=== PATIENT | male | born 1960 | race Caucasian/White ===

== ENCOUNTER 2024-01-10 14:14 | Outpatient (OUT) | payer BC, SELFPAY ==
--- NOTE | 2024-01-10 14:26 | ECG_ITS ---
[facility] Test Date: 2024-01-10 Pat Name: RIKKI FERRER Department: Room: - Gender: Male [employer]: : 1960 Requested By: SURY DRAKE Order Number: [id number] Reading MD: JESSICA BONNER Measurements Intervals Omega Rate: 72 P: 39 WV: 187 QRS: -29 QRSD: 97 T: 30 QT: 362 QTc: 397 Interpretive Statements SINUS RHYTHM BORDERLINE LEFT AXIS DEVIATION [QRS AXIS < -20] No previous ECG available for comparison Electronically Signed On 01-10-2024 22:29:07 EDT by JESSICA BONNER
--- NOTE | 2024-01-10 14:56 | P.GSHP_ITS ---
History of Present Illness History of Present Illness Chief complaint: left Achilles tendon rupture Narrative: Patient presents for preadmission testing. Please see HPI from Dr. Henriquez dated January 06, 2024. Review of Systems ROS0 Narrative REVIEW OF SYSTEMS: Negative except as stated in HPI, ten or more systems reviewed. Constitutional: No fever, chills, weakness ENT: No sore throat or epistaxis Cardiovascular: No edema, chest pain, palpitations, or activity intolerance Respiratory: No shortness of breath, cough, or wheezing Gastrointestinal: No abdominal pain, constipation, diarrhea, or vomiting Genitourinary: No dysuria or hematuria Neurological: No numbness, tingling, weakness, or headache Psychiatric: No mood changes PFSH PFS Medical History (Updated 01/10/24 @ 14:42 by Cherie Nunez NP) Shoulder pain ?M25.519 - Pain in unspecified shoulder (ICD-10) Arthritis ?M19.90 - Unspecified osteoarthritis, unspecified site (ICD-10) Sleep apnea ?G47.30 - Sleep apnea, unspecified (ICD-10) Hypothyroid ?E03.9 - Hypothyroidism, unspecified (ICD-10) High cholesterol ?E78.00 - Pure hypercholesterolemia, unspecified (ICD-10) Hypertension ?I10 - Essential (primary) hypertension (ICD-10) Achilles tendon tear ?S86.019A - Strain of unspecified Achilles tendon, initial encounter (ICD-10) Surgical History (Updated 01/10/24 @ 14:42 by Cherie Nunez NP) History of colonoscopy ?Z98.890 - Other specified postprocedural states (ICD-10) History of tonsillectomy ?Z90.89 - Acquired absence of other organs (ICD-10) History of wisdom tooth extraction ?K08.409 - Partial loss of teeth, unspecified cause, unspecified class (ICD- 10) H/O hand surgery ?Z98.890 - Other specified postprocedural states (ICD-10) History of hernia repair ?Z98.890 - Other specified postprocedural states (ICD-10) ?Z87.19 - Personal history of other diseases of the digestive system (ICD-10) S/P total hip arthroplasty ?Z96.649 - Presence of unspecified artificial hip joint (ICD-10) Family History (Updated 08/06/24 @ 14:42 by Cherie Nunez NP) Other Cancer Social History (Updated 01/10/24 @ 14:38 by Cherie Nunez NP) Within the past year, how often did you have a drink containing alcohol: 2-3 times a week Smoking status: Never smoker Non-prescribed substance use: denies use Previous occupational history: HVAC Highest level of school completed/degree received: Associate degree: occupational, technical, vocational program Meds Home Medications and Allergies Home Medications ?Medication ?Instructions ?Recorded ?Confirmed ?Type atorvastatin 20 mg tablet 20 mg PO DAILY 01/10/24 01/10/24 History hydrochlorothiazide 25 mg tablet 25 mg PO DAILY 01/10/24 01/10/24 History levothyroxine 75 mcg tablet 75 mcg PO DAILY 01/10/24 01/10/24 History lisinopril 10 mg tablet 10 mg PO DAILY 01/10/24 01/10/24 History Allergies Allergy/AdvReac Type Severity Reaction Status Date / Time No Known Drug Allergies Allergy Verified 01/10/24 14:31 Exam Narrative Exam Narrative: Constitutional: Awake, alert, comfortable, well-appearing, nontoxic, interactive, vital signs as charted Head: Normocephalic, atraumatic Neck: Supple, normal appearance, normal range of motion, no meningeal signs, no lymphadenopathy Respiratory: No respiratory distress, breath sounds clear Cardiovascular: Regular rate and rhythm, strong and regular heart tones Musculoskeletal: Cam walking boot in place left lower extremity Skin: No rashes or induration, no lesions, only visible skin inspected Neuro: No neurological deficits, normal sensation Psychiatric: Oriented ?3, normal affect Assessment and Plan Assessment and Plan (1) Achilles tendon tear: Plan Repair of Achilles rupture left leg, possible tendon transfer scheduled with Dr. Henriquez January 13, 2024.
[2024-01-10 15:17] LABS: Anion Gap 9.3; BUN Creatinine Ratio 23.9; Calcium 9.4 mg/dL (8.5-10.1); Carbon Dioxide 29.5 mmol/L (21.0-32.0); Chloride 99 mmol/L (98-107); Estimated GFR (African America >60 (>=60); Estimated GFR (Non-African Ame >60 (>=60); Glucose 100 mg/dL (74-106); Potassium 3.8 mmol/L (3.5-5.1); Sodium 134 mmol/L (136-145)
== END 2024-01-10 14:15 | disposition home or self-care (01) ==
LOC: PST 14:19
PROVIDERS: PCP Family Medicine; Visit Provider Podiatrist Foot & Ankle Surgery
DX: Z01.810 Encounter for preprocedural cardiovascular examination (principal); Z01.812 Encounter for preprocedural laboratory examination; S86.012A Strain of left Achilles tendon, initial encounter; I10 Essential (primary) hypertension
CPT/HCPCS: 36415; 80048; 93005; G0463

== ENCOUNTER 2024-01-13 06:14 | Day surgery (SDC) | payer BC, SELFPAY ==
[2024-01-10 14:51] VITALS: BP 138/91; PULSE 77; TEMP 36.3; O2SAT 97; BMI 33.4
[2024-01-13] VITALS (8 sets, daily range): BP systolic 128–146; BP diastolic 81–96; PULSE 62–76; TEMP 36.3–36.4; O2SAT 92–98; BMI 33.1
--- OUTSIDE RECORDS SUMMARY | 2024-01-13 06:18 | XMS_ITS | CCD ---
Author Organization [facility] Providers Care Data Keyer Name Role Phone MAST, RUBEN Unavailable Unavailable MAST, RUBEN Unavailable Unavailable MAST, RUBEN Unavailable Unavailable MAST, RUBEN Unavailable Unavailable MAST, RUBEN Unavailable Unavailable MAST, RUBEN Unavailable Unavailable MAST, RUBEN Unavailable Unavailable MAST, RUBEN Unavailable Unavailable MAST, RUBEN Unavailable Unavailable Mario Regan Admit Provider Mario Regan Attending Provider Mast, Ruben Primary Care Provider Mast, Ruben Primary Care Provider [phone] Miguel Merlos Attending Provider [phone] Eliana Barrera Attending Provider Mast, Ruben Primary Care Provider [phone] Miguel Merlos Attending Provider Mario Regan Attending Provider Eliana Barrera Attending Provider [phone] Mast, Ruben Primary Care Provider [phone] Mario Regan Attending Provider [phone] Eliana Barrera Attending Provider Mast, Ruben Unavailable Apollo Rao Unavailable Homar Dooley Unavailable Liban Maxwell Unavailable Mast, DO Ruben Primary Care Provider Mast, DO Ruben Attending Provider [phone] Mast, DO Ruben Primary Care Provider MD Homar Dooley Attending Provider Mast, DO Ruben Attending Provider Eliana Mir Unavailable Mast, DO Ruben Primary Care Provider Mast, DO Ruben Attending Provider Mast, DO Ruben Primary Care Provider [phone] Mast, DO Ruben Attending Provider Hidalgo, SALES NEGOTIATOR Autumn Attending Provider [phone] Hidalgo, Autumn Unavailable Mast, DO Ruben Primary Care Provider Hidalgo, SALES NEGOTIATOR Autumn Attending Provider [phone] MD Homar Dooley Attending Provider Mast, DO Ruben Primary Care Provider Mast, DO Ruben Primary Care Provider [phone] GOYO Marroquin Attending Provider [phone] GOYO Marroquin Other Provider [phone] CASSIE MARROQUIN Attending Unavailable CASSIE MARROQUIN Referring Unavailable DO Alon Castellanos Emergency Provider [phone] Mast, Ruben Primary Care Unavailable Mast, Ruben Attending Unavailable Mast, Ruben Admitting Unavailable Cassie Marroquin Admitting Unavailable Cassie Marroquin Consulting Unavailable Cassie Marroquin Attending Unavailable Mast, Ruben Primary Care Unavailable Homar Dooley Admitting Unavailable Homar Dooley Attending Unavailable Mast, Ruben Primary Care Unavailable Mast, Ruben Primary Care Unavailable Mast, Ruben Attending Unavailable Mast, Ruben Admitting Unavailable Hidalgo, Autumn Admitting Unavailable Hidalgo, Autumn Attending Unavailable Mast, Ruben Primary Care Unavailable Alon Castellanos Attending Unavailable Mast, Ruben Primary Care Unavailable Alon Castellanos Admitting Unavailable Unavailable Unavailable Unavailable Medications Current Medications Medication Drug Class(es) Dates Sig (Normalized) Sig (Original) 0.25 MG, 0.5 MG Dose 3 ML semaglutide 0.68 MG/ML Pen Injector [Ozempic] (1 source) Start: 01-10-2023 Ozempic (0.25 or 0.5 MG/DOSE) 2 MG/3ML 0.25 mg Subcutaneous once a week Jan, Active 0.5 ML semaglutide 0.5 MG/ML Auto-Injector [Wegovy] (2 sources) Start: 01-12-2023 inject 0.5 mL by subcutaneous injection every week Wegovy 0.25 MG/0.5ML 0.5 mL Subcutaneous once a week for 30 days Jan, Active acetaminophen 325 mg oral tablet (20 sources) Start: 10-03-2023 take 1 tablet by mouth every four hours as needed Acetaminophen (Tylenol) 325 mg tablet Active 1 TAB PO Every 4 hours October 03, 2023 12:00am FreeTextSi tablet as needed Orally every 4 hrs; Note: Source Status: Takingprn; Provider: Rocky Leyva ( ) Start: 07-22-2020 End: 09-07-2021 take 650 mg by mouth once daily Acetaminophen Discontinued 650 MG PO Daily July 22, 2020 1:00am September 07, 2021 7:32am Start: 10-15-2019 End: 02-27-2020 take 1 tablet by mouth every six hours Acetaminophen (Tylenol) 325 mg Tablet Discontinued 325 MG PO Q6H October 15, 2019 12:00am February 27, 2020 8:48am take 1 tablet by abdiel th every four hours Tylenol 325 MG 1 tablet as needed Orally every 4 hrs prn Active acetaminophen 325 mg / HYDROcodone bitartrate 5 mg oral tablet (2 sources) Opioid Agonist Start: 01-02-2024 take 1 tablet by mouth every six hours Hydrocodone-Acetaminophen Active 1 TAB PO Q6H 10 January 02, 2024 amoxicillin 500 mg oral capsule (3 sources) Penicillin-class Antibacterial Start: 12-25-2023 take 500 mg by mouth twice daily Amoxicillin Active 500 MG PO Twice daily 25 03December 25, 2023 12:00am Amoxicillin / Clavulanate (15 sources) Penicillin-class Antibacterial Start: 12-03-2022 take 1 tablet by mouth every twelve hours Augmentin 875-125 MG 1 tablet Orally every 12 hrs for 7 days Nov, Active Start: 10-17-2021 take 1 tablet by mouth every t welve hours atorvastatin (20 sources) HMG-CoA Reductase Inhibitor Start: 12-28-2023 take 1 tablet by mouth once daily Atorvastatin Active 0 .ROUTE .COMPLEX December 28, 2023 11:06am Take 1 tablet by mouth once daily Start: 11-28-2023 End: 12-28-2023 take 1 tablet by mouth once daily Atorvastatin Discontinued 0 .ROUTE .COMPLEX November 28, 2023 6:56am December 28, 2023 11:07am Take 1 tablet by mouth once daily Start: 11-28-2023 take 1 tablet by abdiel th once daily Atorvastatin Active 0 .ROUTE .COMPLEX November 28, 2023 6:56am Take 1 tablet by mouth once daily Start: 09-28-2023 End: 11-28-2023 take 1 tablet by mouth once daily Atorvastatin Discontinued 0 .ROUTE .COMPLEX September 28, 2023 3:11pm November 28, 2023 6:57am Take 1 tablet by mouth once daily Start: 09-28-2023 take 1 tablet by abdiel th once daily Atorvastatin Active 0 .ROUTE .COMPLEX September 28, 2023 3:11pm Take 1 tablet by mouth once daily Start: 08-09-2023 End: 09-28-2023 take 1 tablet by mouth once daily Atorvastatin Discontinued 1 TAB PO Daily August 09, 2023 1:00am September 28, 2023 3:11pm FreeTextSig: Take 1 tablet by mouth once daily; Note: Source Status: Taking; Refills: 10; Provider: Lidia Morgan ( ) Start: 01-05-2022 take 1 tablet by abdiel th every twenty-four hours Atorvastatin Calcium 20 MG 1 tablet Orally Once a day for 30 day(s) Jan, Active diclofenac sodium 0.01 mg/mg topical gel (20 sources) Nonsteroidal Anti-inflammatory Drug Start: 10-03-2023 Diclofenac Sodium Active TOPICAL October 03, 2023 12:00am FreeTextSig: as directed apply 1-2 grams affected area Four times a day; Note: Source Status: Taking; Refills: 2; Qty: 100 Gram; Provider: Soumya Laureano Start: 10-19-2022 Diclofenac Sod ium 1 % as directed apply 1-2 grams affected area Four times a day for 30 days October, Active Start: 06-13-2019 End: 02-27-2020 take 50 mg by mouth twice daily Diclofenac Potassium Discontinued 50 MG PO Twice daily June 13, 2019 1:00am February 27, 2020 8:49am hydroCHLOROthiazide 25 mg oral tablet (20 sources) Thiazide Diuretic Start: 12-28-2023 take 1 tablet by mouth once daily in the morning Hydrochlorothiazide Active 0 .ROUTE .COMPLEX December 28, 2023 11:07am TAKE 1 TABLET BY MOUTH ONCE DAILY IN THE MORNING Start: 08-05-2020 End: 12-28-2023 take 25 mg by mouth once daily Hydrochlorothiazide Discontinued 25 MG PO Daily August 05, 2020 1:00am December 28, 2023 11:07am levothyroxine sodium 0.075 mg oral tablet (20 sources) l-Thyroxine Start: 08-02-2023 End: 08-02-2023 take 1 tablet by mouth once daily in the morning Levothyroxine Active 75 MCG PO Daily August 02, 2023 2:05pm FreeTextSig: TAKE 1 TABLET BY MOUTH ONCE DAILY IN THE MORNING ON AN EMPTY STOMACH; Note: Source Status: Taking; Refills: 2; Qty: 30 Tablet; Provider: Lidia Morgan ( ) Start: 10-15-2022 take 1 tablet by abdiel th once daily in the morning Levothyroxine Sodium 50 MCG 1 tablet in the morning on an empty stomach Orally Once a day for 30 days October, Active take 1 tablet by abdiel th once daily in the morning Levothyroxine Sodium 75 MCG TAKE 1 TABLET BY MOUTH ONCE DAILY IN THE MORNING ON AN EMPTY STOMACH for 30 days Active take 1 tablet by abdiel th once daily in the morning Levothyroxine Sodium 75 MCG TAKE 1 TABLET BY MOUTH ONCE DAILY IN THE MORNING ON AN EMPTY STOMACH for 30 days Active Lisinopril (20 sources) Angiotensin Converting Enzyme Inhibitor Start: 12-28-2023 take 1 tablet by mouth once daily Lisinopril Active 0 .ROUTE .COMPLEX December 28, 2023 11:07am Take 1 tablet by mouth once daily Start: 09-07-2021 End: 12-28-2023 take 10 mg by mouth once daily Lisinopril Discontinued 10 MG PO Daily September 07, 2021 12:00am December 28, 2023 11:07am Loratadine (20 sources) Claritin Active predniSONE 10 mg oral tablet (4 sources) Start: 12-25-2023 Prednisone Active MG PO December 25, 2023 12:00am sildenafil 100 mg oral tablet (20 sources) Phosphodiesterase 5 Inhibitor Start: 05-10-2017 take 1 tablet by mouth once daily Sildenafil (Viagra) 100 mg Tablet Active 100 MG PO Daily October 15, 2019 12:00am wegovy 0.25 mg/0.5ml solution auto-injector (1 source) Start: 01-12-2023 inject 0.5 mL by subcutaneous injection every week Wegovy 0.25 MG/0.5ML 0.5 mL Subcutaneous once a week for 30 days Jan, Active Completed/Discontinued Medications Medication Drug Class(es) Dates Sig (Normalized) Sig (Original) acetaminophen 325 mg / oxyCODONE hydrochloride 5 mg oral tablet (16 sources) Opioid Agonist Start: 03-05-2020 Percocet 5-325 MG 1-2 tablet as needed for pain Orally every 6-8 hrs for 7 days Feb, Not-Taking aspirin 81 mg delayed release oral tablet (17 sources) Platelet Aggregation Inhibitor, Nonsteroidal Anti-inflammatory Drug Start: 08-05-2020 End: 09-07-2021 take 81 mg by mouth twice daily Aspirin Discontinued 81 MG PO Twice daily August 05, 2020 1:00am September 07, 2021 7:32am benzonatate 200 mg oral capsule (15 sources) Non-narcotic Antitussive Start: 09-16-2023 End: 10-03-2023 take 200 mg by mouth three times daily Benzonatate Discontinued 200 MG PO Three times daily 04 04September 16, 2023 12:00am October 03, 2023 3:20pm Start: 12-03-2022 take 1 capsule by [facility] three times daily as needed Tessalon Perles 100 MG 1 capsule as needed Orally Three times a day PRN for 7 days Nov, Active cyclobenzaprine hydrochloride 10 mg oral tablet (20 sources) Muscle Relaxant Start: 06-13-2019 End: 02-27-2020 take 10 mg by mouth three times daily Cyclobenzaprine Discontinued 10 MG PO Three times daily January 25, 2020 12:00am February 27, 2020 8:49am doxycycline monohydrate 100 mg oral capsule (7 sources) Tetracycline-class Drug Start: 09-16-2023 End: 10-03-2023 take 100 mg by mouth twice daily Doxycycline Monohydrate Discontinued 100 MG PO Twice daily 14 7 September 16, 2023 12:00am October 03, 2023 3:23pm gabapentin 300 mg oral capsule (16 sources) Anti-epileptic Agent Start: 01-02-2020 take 1 capsule by mouth every twenty-four hours Gabapentin 300 MG 1 capsule Orally Once a day for 30 day(s) Dec, Not-Taking hydrOXYzine pamoate 50 mg oral capsule (20 sources) Antihistamine Start: 08-05-2020 End: 09-07-2021 take 25 mg by mouth every three hours Hydroxyzine Pamoate Discontinued 25 MG PO Q3H August 05, 2020 1:00am September 07, 2021 7:22am Start: 08-05-2020 End: 09-07-2021 take 50 mg by mouth every three hours Hydroxyzine Pamoate Discontinued 50 MG PO Q3H August 05, 2020 1:00am September 07, 2021 7:32am Start: 03-05-2020 take 1 capsule by mo ut every eight hours as needed for muscle spasms Vistaril 25 MG 1 capsule as needed for muscle spasm Orally every 8 hrs May substitute with capsules or atarax 25 mg if needed Feb, Not-Taking ibuprofen 200 mg oral tablet (20 sources) Nonsteroidal Anti-inflammatory Drug Start: 07-22-2020 End: 09-07-2021 take 400 mg by mouth every six hours Ibuprofen Discontinued 400 MG PO Q6H July 22, 2020 1:00am September 07, 2021 7:32am Start: 02-27-2020 End: 03-12-2020 take 400 mg by mouth every six hours Ibuprofen Discontinued 400 MG PO Q6H February 27, 2020 12:00am March 12, 2020 3:02pm oxyCODONE hydrochloride 5 mg oral tablet (20 sources) Opioid Agonist Start: 08-05-2020 End: 09-07-2021 take 10 mg by mouth every four hours Oxycodone Discontinued 10 MG PO Every 4 hours August 05, 2020 September 07, 2021 7:32am Start: 08-05-2020 End: 09-07-2021 take 5 mg by mouth every four hours Oxycodone Discontinued 5 MG PO Every 4 hours August 05, 2020 September 07, 2021 7:22am rivaroxaban 10 mg oral tablet (20 sources) Factor Xa Inhibitor Start: 03-12-2020 End: 07-22-2020 take 1 tablet by mouth once daily Rivaroxaban (Xarelto) 10 mg Tablet Discontinued 10 MG PO Daily March 12, 2020 12:00am July 22, 2020 10:30am 72 hr scopolamine 0.0139 mg/hr transdermal system (20 sources) Anticholinergic Start: 06-13-2019 End: 09-07-2021 Scopolamine Base Discontinued 1 MG TOPICAL Q72H June 13, 2019 1:00am September 07, 2021 7:32am Start: 06-08-2018 Transderm-Scop 1.5 MG 1 patch to skin as needed Transdermal for 30 day(s) Jun, Not-Taking Transderm-Scop 1 .5 MG 1 patch to skin as needed Transdermal for 30 day(s) PRN Active Transderm-Scop 1 .5 MG 1 patch to skin as needed Transdermal for 30 day(s) Active tiZANidine 4 mg oral capsule (20 sources) Central alpha-2 Adrenergic Agonist Start: 10-15-2019 End: 10-15-2019 take 4 mg by mouth three times daily Tizanidine Discontinued 4 MG PO Three times daily October 15, 2019 12:00am October 15, 2019 12:57pm traMADol hydrochloride 50 mg oral tablet (20 sources) Opioid Agonist Start: 12-21-2019 End: 03-12-2020 take 50 mg by mouth once daily Tramadol Discontinued 50 MG PO Daily December 21, 2019 12:00am March 12, 2020 3:02pm Start: 11-07-2019 take 1 tablet by abdiel th every eight hours as needed for pain traMADol HCl 50 MG 1 tablet as needed for pain Orally every 8 hours for 7 days Feb, Not-Taking triamcinolone acetonide 40 mg/ml injectable suspension (20 sources) Corticosteroid Start: 08-24-2021 Kenalog-40 Dec, 40 mg Start: 08-24-2021 Kenalog -40 mg Aug, 40 mg Problems Active Problems Problem Classification Problem Date Documented Date Episodic/Chronic Disorders of lipid metabolism (20 sources) Hyperlipidemia; Translations: [Hyperlipidemia, unspecified] Onset: 01-05-2022 Resolved: 01-05-2022 Chronic Essential hypertension (20 sources) Essential hypertension; Translations: [Essential (primary) hypertension] Onset: 11-26-2021 Resolved: 11-26-2021 Chronic Osteoarthritis (20 sources) Osteoarthritis of left hip joint; Translations: [Unilateral primary osteoarthritis, left hip] Onset: 08-24-2021 Resolved: 12-08-2021 Chronic Other and unspecified benign neoplasm (20 sources) History of polyp of colon; Translations: [Personal history of colonic polyps] Episodic Other and unspecified benign neoplasm (13 sources) Polyp of colon; Translations: [Polyp of colon] 09-07-2021 Episodic Other connective tissue disease (20 sources) History of total hip arthroplasty; Translations: [Presence of unspecified artificial hip joint] 03-12-2020 Chronic Other connective tissue disease (1 source) Presence of unspecified artificial hip joint; Translations: [History of revision of total replacement of left hip joint] Chronic Other connective tissue disease (20 sources) History of total replacement of right hip joint; Translations: [Presence of right artificial hip joint] Chronic Other connective tissue disease (2 sources) Pain in right hand Episodic Other connective tissue disease (2 sources) Pain in left hand Episodic Other connective tissue disease (2 sources) Achilles tendinitis; Translations: [Achilles tendinitis, unspecified leg] 01-02-2024 Episodic Other ear and sense organ disorders (20 sources) Bilateral tinnitus; Translations: [Tinnitus, bilateral] Episodic Other injuries and conditions due to external causes (20 sources) Splinter in skin; Translations: [Other injury of unspecified body region, initial encounter] 06-12-2020 Episodic Other male genital disorders (20 sources) Impotence of organic origin; Translations: [Male erectile dysfunction, unspecified] Chronic Other nervous system disorders (20 sources) Chronic pain; Translations: [Other chronic pain] Chronic Other non-traumatic joint disorders (3 sources) Pain in right shoulder Onset: 08-24-2021 Resolved: 12-08-2021 Episodic Other non-traumatic joint disorders (3 sources) Pain in left shoulder Onset: 08-24-2021 Resolved: 12-08-2021 Episodic Other nutritional; endocrine; and metabolic disorders (10 sources) Body mass index 30+ - obesity; Translations: [Body mass index (BMI) 33.0-33.9, adult] Chronic Other nutritional; endocrine; and metabolic disorders (10 sources) Obesity; Translations: [Obesity, unspecified] Chronic Other nutritional; endocrine; and metabolic disorders (2 sources) Obesity, unspecified; Translations: [Obesity, unspecified] Onset: 04-14-2023 Chronic Other nutritional; endocrine; and metabolic disorders (1 source) Body mass index (BMI) 33.0-33.9, adult Chronic Other screening for suspected conditions (not mental disorders or infectious disease) (20 sources) Screening status; Translations: [Encounter for screening for malignant neoplasm of colon] Onset: 12-17-2023 Episodic Other upper respiratory disease (20 sources) Allergic rhinitis; Translations: [Allergic rhinitis, unspecified] Chronic Other upper respiratory infections (18 sources) Acute sinusitis, unspecified; Translations: [Acute upper respiratory infection, unspecified] Onset: 10-17-2021 Resolved: 10-17-2021 Episodic Residual codes; unclassified (15 sources) Obstructive sleep apnea syndrome; Translations: [Obstructive sleep apnea (adult) (pediatric)] Chronic Residual codes; unclassified (1 source) Obstructive sleep apnea (adult) (pediatric) Chronic Residual codes; unclassified (1 source) Obstructive sleep apnea (adult)(pediatric); Translations: [Obstructive sleep apnea (adult) (pediatric)] Onset: 06-27-2023 Chronic Residual codes; unclassified (20 sources) Insomnia; Translations: [Insomnia, unspecified] Episodic Residual codes; unclassified (1 source) Insomnia, unspecified Episodic Spondylosis; intervertebral disc disorders; other back problems (20 sources) Solitary sacroiliitis; Translations: [Sacroiliitis, not elsewhere classified] Chronic Spondylosis; intervertebral disc disorders; other back problems (20 sources) Lumbago with sciatica; Translations: [Lumbago with sciatica, right side] Episodic Sprains and strains (4 sources) Rupture of Achilles tendon; Translations: [Strain of unspecified Achilles tendon, initial encounter] Onset: 01-02-2024 01-02-2024 Episodic Thyroid disorders (8 sources) Hypothyroidism; Translations: [Hypothyroidism, unspecified] 10-03-2023 Chronic Unclassified (1 source) Primary osteoarthritis, right shoulder; Translations: [Primary osteoarthritis, right shoulder] Onset: 08-09-2023 Past or Other Problems Problem Classification Problem Date Documented Da te Episodic/Chronic Other and unspecified benign neoplasm (1 source) Personal history of colonic polyps Onset: 08-12-2021 Resolved: 08-12-2021 Episodic Results Test Name Value Interpretation Reference Range Facility MR ankle LT wo conon 024 MR ankle LT wo con [facility] Main [place] [address] [place] [address] MRI Report Signed Patient: Paul Bermudez MR#: [id number] : 1960 Acct:[id number] Age/Sex: 63 / M ADM Date: 01/02/24 Loc: ER Room: Type: [facility] ER Attending Dr: Copies to: Alon Castellanos DO Ordering Provider: Alon Castellanos DO Date of Service: 01/02/24 MR/MR ankle LT wo con: achilles MR ankle LT wo con 01/02/2024 8:47 AM SIGNS AND SYMPTOMS: Twisting injury to left ankle with pain on palpation, possible torn Achilles tendon PROTOCOL: Multiplanar multisequence MR images of the left ankle were obtained without IV contrast. COMPARISON: None FINDINGS: Alignment: Normal. Fluid: Tibiotalar: No joint effusion. Subtalar: No joint effusion. Medial: Medial malleolus: Intact. Tendons: Posterior tibial tendon: Intact. Flexor digitorum longus: Intact. Flexor hallucis longus: Intact. There is fluid along the tendon sheath possibly representing tenosynovitis.. Ligaments: Deltoid ligament complex - superficial: Intact. Deltoid ligament complex - deep: Intact. Spring (plantar calcaneo-navicular) ligament: Intact. Lateral: Lateral malleolus: Intact. Retromalleolar groove: Intact. Tendons: Peroneus longus: Intact. Peroneus brevis: Intact. Peroneal retinaculum: Intact. Ligaments: Anterior inferior tibiofibular (syndesmosis): Intact. Posterior inferior tibiofibular (syndesmosis): Intact. Anterior talofibular ligament: Intact. Calcaneofibular ligament: Intact. Posterior talofibular ligament: Intact. Posterior: Posterior talus: Normal. Intermalleolar ligament: Intact. Achilles tendon: There is a full-thickness tear of the Achilles tendon. The proximal aspect is retracted cranially by 6 cm. Plantar fascia: Intact. Anterior: Tendons: Anterior tibial tendon: Intact. Extensor hallucis longus: Intact. Extensor digitorum longus: Intact. Tibiotalar joint: Intact. Subtalar joint: Intact. Bones (other than subarticular marrow): Normal. Muscles: Normal Tarsal tunnel: Normal. Sinus tarsi: Normal. MR/MR ankle LT wo con IMPRESSION: There is a full-thickness tear of the Achilles tendon. The proximal aspect is retracted cranially by 6 cm. There is fluid along the flexor hallucis longus tendon sheath possibly representing tenosynovitis. Impression dictated by: Jhon Carrington M.D.01/02/2024 12:58 PM Dictation Location: [place] [address] Transcribed By: [facility] 01/02/24 1258 Dictated By: Jhon Carrington II, MD 01/02/24 1245 Signed By: 01/02/24 1258 Normal [facility] No Panel InformationOrdered By: Makenna Lock on 12-25-2023 COVID Antigen (POC) [place] Quick Strep (POC) [facility] US venous duplex [facility] US venous [place] [address] Ultrasound Report Signed Patient: Paul Bermudez MR#: [id number] : 1960 Acct:[id number] Age/Sex: 63 / M ADM Date: 12/17/23 Loc: [place] Room: Type: [facility] Attending Dr: Cassie TOUSSAINTC Ordering Provider: Cassie Marroquin PA-C Date of Service: 12/17/23 US/US venous duplex [facility]: R22.42 Copies to: Cassie Marroquin PA-C LEFT LOWER EXTREMITY VENOUS DUPLEX INDICATION: Left leg edema pain and tenderness. Recent left ankle trauma. Unilateral left lower extremity venous duplex Doppler study was obtained utilizing B-mode, color- flow and spectral Doppler. FINDINGS: The left common femoral, femoral, and popliteal veins showed adequate compressibility, color-flow and augmentation. The left posterior tibial and peroneal veins were compressible, as well as proximal greater saphenous vein. The contralateral right common femoral vein was compressible with color-flow and augmentation. US/US venous duplex LE LT IMPRESSION: NO EVIDENCE OF DEEP VENOUS THROMBOSIS IN THE LEFT LOWER EXTREMITY. NO SUPERFICIAL THROMBOPHLEBITIS WAS NOTED. Impression dictated by: Sunday Brar MD12/18/2023 12:53 PM Dictation Location: [place] [address] Tech: Mirta Betancourt Transcribed By: RC 12/18/23 1253 Dictated By: Sunday Brar MD 12/18/23 1253 Signed By: 12/18/23 1253 Normal [facility] Alanine aminotransferase [En zymatic activity/volume] in Serum or PlasmaOrdered By: Ruben Murillo on 12-17-2023 ALT [Catalytic activity/Vol] 44 U/L 7-52 [facility] Comment on above: Performed By: #### L IPID, CBC, TSH3 wRFLX, CMP wRFX A1C #### [facility] [address] [place] [id number] [place] Albumin [Mass/volume] in Ser um or Plasma by Bromocresol green (BCG) dye binding methoOrdered By: Ruben Murillo on 12-17-2023 Albumin BCG dye [Mass/Vol] 4.7 g/dL 3.5-5.7 [facility] Alkaline phosphatase [Enzyma tic activity/volume] in Serum or PlasmaOrdered By: Ruben Murillo on 12-17-2023 ALP [Catalytic activity/Vol] 48 U/L 34-104 [facility] Comment on above: Performed By: #### L IPID, CBC, TSH3 wRFLX, CMP wRFX A1C #### [facility] [address] [place] [address] [place] Aspartate aminotransferase [ Enzymatic activity/volume] in Serum or PlasmaOrdered By: Ruben Murillo on 12-17-2023 AST [Catalytic activity/Vol] 30 U/L 13-39 [facility] Comment on above: Performed By: #### L IPID, CBC, TSH3 wRFLX, CMP wRFX A1C #### [facility] [facility] [address] [place] [address] [place] Automated basophil %Ordered By: Ruben Murillo on 12-17-2023 Basophils/100 WBC (Bld) 0.9 % . [facility] Comment on above: Performed By: #### L IPID, CBC, TSH3 wRFLX, CMP wRFX A1C #### [facility] [address] [place] [address] Automated basophil countOrde red By: Ruben Mast on 12-17-2023 Basophils (Bld) [#/Vol] 0.1 10*3/uL 0.0-0.2 [facility] Comment on above: Result Comment: PERF ORMED BY: [place] [address] PATHOLOGIST LYMPHEDEMA THERAPIST ELIZABETH RAMIREZ M.D. Performed By: #### L IPID, CBC, TSH3 wRFLX, CMP wRFX A1C #### [address] Automated blood monocyte cou ntOrdered By: Ruben Mast on 12-17-2023 Monocytes (Bld) [#/Vol] 0.8 10*3/uL 0.0-0.8 [facility] Comment on above: Performed By: #### L IPID, CBC, TSH3 wRFLX, CMP wRFX A1C #### [address] Automated eosinophil %Ordere d By: Ruben Mast on 12-17-2023 Eosinophils/100 WBC (Bld) 2.3 % . [facility] Comment on above: Performed By: #### L IPID, CBC, TSH3 wRFLX, CMP wRFX A1C #### [facility] [address] [place] [address] Automated eosinophil countOr dered By: Ruben Mast on 12-17-2023 Eosinophils (Bld) [#/Vol] 0.2 10*3/uL 0.0-0.45 [facility] Comment on above: Performed By: #### L IPID, CBC, TSH3 wRFLX, CMP wRFX A1C #### [facility] [address] [place] [address] Automated monocyte %Ordered By: Ruben Mast on 12-17-2023 Monocytes/100 WBC (Bld) 9.2 % . [facility] Comment on above: Performed By: #### L IPID, CBC, TSH3 wRFLX, CMP wRFX A1C #### [facility] [address] Automated neutrophil %Ordere d By: Ruben Murillo on 12-17-2023 Neutrophils/100 WBC (Bld) 54.2 % . [facility] Comment on above: Performed By: #### L IPID, CBC, TSH3 wRFLX, CMP wRFX A1C #### [facility] [address] Bilirubin.total [Mass/volume ] in Serum or PlasmaOrdered By: Ruben Murillo on 12-17-2023 Bilirubin [Mass/Vol] 0.8 mg/dL 0.3-1.0 [facility] Comment on above: Performed By: #### L IPID, CBC, TSH3 wRFLX, CMP wRFX A1C #### [facility] [address] [place] [address] CMP with reflex to A1Con Albumin [Mass/Vol] 4.7 g/dL Normal 3.5-5.7 [facility] Comment on above: Performed By: #### L IPID, CBC, TSH3 wRFLX, CMP wRFX A1C #### [address] GFR/1.73 sq M.predicted MDRD (S/P/Bld) [Vol rate/Area] mL/min/{1.73_m2} Normal [facility] Comment on above: Performed By: #### L IPID, CBC, TSH3 wRFLX, CMP wRFX A1C #### [facility] [address] [place] [address] Calcium [Mass/volume] in Ser um or PlasmaOrdered By: Ruben Murillo on 12-17-2023 Calcium [Mass/Vol] 9.8 mg/dL 8.6-10.3 [facility] Comment on above: Performed By: #### L IPID, CBC, TSH3 wRFLX, CMP wRFX A1C #### [facility] [address] [place] [address] [place] Carbon dioxide, total [Moles /volume] in Serum or PlasmaOrdered By: Ruben Murillo on 12-17-2023 CO2 [Moles/Vol] 28.4 mmol/L 21.0-31.0 [facility] Comment on above: Performed By: #### L IPID, CBC, TSH3 wRFLX, CMP wRFX A1C #### [facility] [address] [place] [address] [place] Chloride [Moles/volume] in S germain or PlasmaOrdered By: Ruben Murillo on 12-17-2023 Chloride [Moles/Vol] 100 mmol/L 98-107 [facility] Comment on above: Performed By: #### L IPID, CBC, TSH3 wRFLX, CMP wRFX A1C #### [facility] [address] [place] [id number] [place] Cholesterol [Mass/volume] in Serum or PlasmaOrdered By: Ruben Murillo on 12-17-2023 Cholesterol [Mass/Vol] 182 mg/dL 140-200 [facility] Comment on above: Chol less than 200 m g/dl low riskChol 201-239 mg/dl borderline riskChol 240 mg/dl and greater high risk Result Comment: Chol less than 200 mg/dl low risk Chol 201-239 mg/dl borderline risk Chol 240 mg/dl and greater high risk Performed By: #### L IPID, CBC, TSH3 wRFLX, CMP wRFX A1C #### [facility] [address] [place] [id number] [place] Cholesterol in LDL Calc [Mas s/Vol]Ordered By: Ruben Murillo on 12-17-2023 Cholesterol in LDL [Mass/Vol] 96 mg/dL 0-100 [facility] Comment on above: LDL ATP III CLASSIFI CATIONLDL less than 100 mg/dL OptimalLDL 100-129 mg/dL Near or above optimalLDL 130-159 mg/dL Borderline highLDL 160-189 mg/dL HighLDL greater than 189 mg/dL Very high Cholesterol in VLDL Calc [Ma ss/Vol]Ordered By: Ruben Murillo on 12-17-2023 Cholesterol in VLDL [Mass/Vol] 33 mg/dL [facility] Complete Blood Count Auto Di ffon 12-17-2023 Mean Corpuscular HGB Conc 33.7 g/dL Normal 32.5-35.6 [facility] Comment on above: Performed By: #### L IPID, CBC, TSH3 wRFLX, CMP wRFX A1C #### [facility] [address] NRBC% 0.5 /100{WBC} Normal 0-0.5 [facility] Comment on above: Performed By: #### L IPID, CBC, TSH3 wRFLX, CMP wRFX A1C #### [facility] [address] [place] [address] [place] Creatinine [Mass/volume] in Serum or PlasmaOrdered By: Ruben Mast on 12-17-2023 Creatinine [Mass/Vol] 1.09 mg/dL 0.70-1.30 [facility] Comment on above: Performed By: #### L IPID, CBC, TSH3 wRFLX, CMP wRFX A1C #### [facility] [address] Erythrocyte distribution wid th [Ratio] by Automated countOrdered By: Ruben Mast on 12-17-2023 Erythrocyte distribution width (RBC) [Ratio] 13.5 % 12.0-14.8 [facility] Comment on above: Performed By: #### L IPID, CBC, TSH3 wRFLX, CMP wRFX A1C #### [facility] [address] [place] [address] [place] Erythrocytes [#/volume] in B lood by Automated countOrdered By: Ruben Mast on 12-17-2023 RBC (Bld) [#/Vol] 5.51 10*6/uL 3.90-5.60 [place] Comment on above: Performed By: #### L IPID, CBC, TSH3 wRFLX, CMP wRFX A1C #### [facility] [address] [place] [id number] [place] Glucose [Mass/volume] in Ser um or PlasmaOrdered By: Ruben Mast on 07-13-2024 Glucose [Mass/Vol] 93 mg/dL 70-100 [facility] Comment on above: Performed By: #### L IPID, CBC, TSH3 wRFLX, CMP wRFX A1C #### [facility] [address] Hematocrit [Volume Fraction] of Blood by Automated countOrdered By: Ruben Murillo on 12-17-2023 Hematocrit (Bld) [Volume fraction] 47.8 % 38.8-50.0 [facility] Comment on above: Performed By: #### L IPID, CBC, TSH3 wRFLX, CMP wRFX A1C #### [facility] [address] Hemoglobin [Mass/volume] in BloodOrdered By: Ruben Murillo on 12-17-2023 Hemoglobin (Bld) [Mass/Vol] 16.1 g/dL 13.0-17.0 [facility] Comment on above: Performed By: #### L IPID, CBC, TSH3 wRFLX, CMP wRFX A1C #### [facility] [address] Leukocytes [#/volume] correc betzaida for nucleated erythrocytes in Blood by Automated counOrdered By: Ruben Murillo on 12-17-2023 WBC corrected for nucl RBC Auto (Bld) [#/Vol] 9.1 10*3/uL 4.1-10.5 [facility] Leukocytes [#/volume] in Blo od by Automated countOrdered By: Ruben Murillo on 12-17-2023 WBC (Bld) [#/Vol] 9.1 10*3/uL 4.1-10.5 [facility] Comment on above: Performed By: #### L IPID, CBC, TSH3 wRFLX, CMP wRFX A1C #### [facility] [address] Lipid Panelon 12-17-2023 LDL Cholesterol,Calculated 96 mg/dL Normal 0-100 [facility] Comment on above: Result Comment: LDL ATP III CLASSIFICATION LDL less than 100 mg/dL Optimal LDL 100-129 mg/dL Near or above optimal LDL 130-159 mg/dL Borderline high LDL 160-189 mg/dL High LDL greater than 189 mg/dL Very high Performed By: #### L IPID, CBC, TSH3 wRFLX, CMP wRFX A1C #### [facility] [address] [place] [address] Triglyceride w/Reflex 166 mg/dL High 0-149 [facility] Comment on above: Result Comment: TRIG ATP III CLASSIFICATION TRIG less than 150 mg/dL Normal TRIG 150-199 mg/dL Borderline high TRIG 200-500 mg/dL High TRIG greater than 500 mg/dL Very high Standard traceable to the Center for Disease Conrtrol and Prevention (CDC) test method. Performed By: #### L IPID, CBC, TSH3 wRFLX, CMP wRFX A1C #### [address] VLDL CHOLESTEROL 33 mg/dL Normal [facility] Comment on above: Performed By: #### L IPID, CBC, TSH3 wRFLX, CMP wRFX A1C #### [address] Lymphocytes [#/volume] in Bl ood by Automated countOrdered By: Ruben Mast on 12-17-2023 Lymphocytes (Bld) [#/Vol] 3.0 10*3/uL 1.00-4.8 [facility] Comment on above: Performed By: #### L IPID, CBC, TSH3 wRFLX, CMP wRFX A1C #### [place] [address] [place] Lymphocytes/100 leukocytes i n Blood by Automated countOrdered By: Ruben Mast on 12-17-2023 Lymphocytes/100 WBC (Bld) 33.4 % . [facility] Comment on above: Performed By: #### L IPID, CBC, TSH3 wRFLX, CMP wRFX A1C #### [place] [address] [place] MCH [Entitic mass] by Automa betzaida countOrdered By: Ruben Mast on 12-17-2023 MCH (RBC) [Entitic mass] 29.3 pg 27.5-35.2 [facility] Comment on above: Performed By: #### L IPID, CBC, TSH3 wRFLX, CMP wRFX A1C #### [facility] [address] MCHC Auto (RBC) [Mass/Vol]Or dered By: Ruben Mast on 12-17-2023 MCHC (RBC) [Mass/Vol] 33.7 g/dL 32.5-35.6 [facility] MCV [Entitic volume] by Auto mated countOrdered By: Ruben Mast on 12-17-2023 MCV (RBC) [Entitic vol] 86.8 fL 83.5-101 [facility] Comment on above: Performed By: #### L IPID, CBC, TSH3 wRFLX, CMP wRFX A1C #### [facility] [address] [place] [address] Neutrophils [#/volume] in Bl ood by Automated countOrdered By: Ruben Mast on 12-17-2023 Neutrophils (Bld) [#/Vol] 4.9 10*3/uL 1.8-7.7 [facility] Comment on above: Performed By: #### L IPID, CBC, TSH3 wRFLX, CMP wRFX A1C #### [facility] [address] [place] [address] No Panel InformationOrdered By: Ruben Mast on 12-17-2023 Estimated GFR (CKD-EPI) > 60.0 mL/Min [facility] Creatinine Clearance (Chem N/A [facility] Nucleated erythrocytes [Pres ence] in Blood by Automated countOrdered By: Ruben Mast on 12-17-2023 Nucleated RBC Auto Ql (Bld) 0.5 /100{WBC} 0-0.5 [facility] Platelet mean volume [Entiti c volume] in Blood by Automated countOrdered By: Ruben Mast on 12-17-2023 Platelet mean volume (Bld) [Entitic vol] 8.7 fL 6.6-10.1 [facility] Comment on above: Performed By: #### L IPID, CBC, TSH3 wRFLX, CMP wRFX A1C #### [facility] [address] [place] [address] [place] Platelets [#/volume] in Bloo d by Automated countOrdered By: Ruben Murillo on 12-17-2023 Platelets (Bld) [#/Vol] 261 10*3/uL 150-450 [facility] Comment on above: Performed By: #### L IPID, CBC, TSH3 wRFLX, CMP wRFX A1C #### [facility] [address] [place] [address] [place] Potassium [Moles/volume] in Serum or PlasmaOrdered By: Ruben Mast on 12-17-2023 Potassium [Moles/Vol] 4.5 mmol/L 3.5-5.1 [facility] Comment on above: Performed By: #### L IPID, CBC, TSH3 wRFLX, CMP wRFX A1C #### [facility] [address] [place] [address] Protein [Mass/volume] in Ser um or PlasmaOrdered By: Ruben Murillo on 12-17-2023 Protein [Mass/Vol] 6.8 g/dL 6.4-8.9 [facility] Comment on above: Performed By: #### L IPID, CBC, TSH3 wRFLX, CMP wRFX A1C #### [facility] [address] [place] [address] Serum globulin measurement b y calculation (mass/volume)Ordered By: Ruben Murillo on 12-17-2023 Globulin (S) [Mass/Vol] 2.1 g/dL [facility] Comment on above: Performed By: #### L IPID, CBC, TSH3 wRFLX, CMP wRFX A1C #### [facility] [address] [place] [address] Serum or plasma albumin/glob ulin mass ratioOrdered By: Ruben Murillo on 12-17-2023 Albumin/Globulin [Mass ratio] 2.2 {ratio} [facility] Comment on above: Performed By: #### L IPID, CBC, TSH3 wRFLX, CMP wRFX A1C #### [facility] [address] [place] [address] Serum or plasma anion gap de terminationOrdered By: Ruben Murillo on 12-17-2023 Anion gap [Moles/Vol] 12.1 mmol/L 6.0-15.0 [facility] Comment on above: Performed By: #### L IPID, CBC, TSH3 wRFLX, CMP wRFX A1C #### [facility] [address] Serum or plasma high density lipoprotein (HDL) cholesterol measurementOrdered By: Rubne Murillo on 12-17-2023 Cholesterol in HDL [Mass/Vol] 53 mg/dL 23- [facility] Comment on above: HDL CHOL ATP-III CLA SSIFICATION Cardiovascular RiskHDL > or equal to 60 mg/dL LOWHDL < 40 mg/dL HIGH Result Comment: HDL CHOL ATP-III CLASSIFICATION Cardiovascular Risk HDL > or equal to 60 mg/dL LOW HDL < 40 mg/dL HIGH Performed By: #### L IPID, CBC, TSH3 wRFLX, CMP wRFX A1C #### [facility] [address] [place] [address] Serum or plasma total choles terol/high density lipoprotein (HDL) cholesterol mass ratOrdered By: Ruben Murillo on 12-17-2023 Cholesterol.total/Choles terol in HDL [Mass ratio] 3.4 {ratio} <5.0 [facility] Comment on above: Performed By: #### L IPID, CBC, TSH3 wRFLX, CMP wRFX A1C #### [facility] [address] [place] [address] Sodium [Moles/volume] in Ser um or PlasmaOrdered By: Ruben Murillo on 12-17-2023 Sodium [Moles/Vol] 136 mmol/L 136-145 [facility] Comment on above: Performed By: #### L IPID, CBC, TSH3 wRFLX, CMP wRFX A1C #### [facility] [address] Thyroid Stim Hormone w/Rflxo n 12-17-2023 Thyroid Stim Hormone w/Rflx 3.66 u[iU]/mL Normal 0.45-5.33 [facility] Comment on above: Result Comment: PERF ORMED BY: [facility] [address] [facility] [place] [address] PATHOLOGIST LYMPHEDEMA THERAPIST ELIZABETH RAMIREZ M.D. Performed By: #### L IPID, CBC, TSH3 wRFLX, CMP wRFX A1C #### [facility] [address] Thyrotropin [Units/volume] i n Serum or PlasmaOrdered By: Ruben Mast on 12-17-2023 TSH Qn 3.66 m[IU]/L 0.45-5.33 [facility] Triglyceride [Mass/volume] i n Serum or PlasmaOrdered By: Ruben Mast on 12-17-2023 Triglyceride [Mass/Vol] 166 mg/dL High 0-149 [facility] Comment on above: TRIG ATP III CLASSIF ICATIONTRIG less than 150 mg/dL NormalTRIG 150-199 mg/dL Borderline highTRIG 200-500 mg/dL High TRIG greater than 500 mg/dL Very highStandard traceable to the Center for Disease Conrtrol and Prevention (CDC) test method. Urea nitrogen [Mass/volume] in Serum or PlasmaOrdered By: Ruben Mast on 12-17-2023 Urea nitrogen [Mass/Vol] 25 mg/dL 7-25 [facility] Comment on above: Performed By: #### L IPID, CBC, TSH3 wRFLX, CMP wRFX A1C #### [address] XR ANKLE 3+ VIEWS LEFTon XR ANKLE 3+ VIEWS LEFT Exam: XR - LT ANK LE COMPLETE MIN 3V Clinical History: Rolled left ankle two weeks ago, posterior pain, tightness Reference Exam: No comparison FINDINGS: Ossifications are present within the distal Achilles mechanism relative to the musculotendinous junction extending in cephalocaudad extent 3.8 cm. Small retrocalcaneal exostosis. Small-mild plantar calcaneal enthesophyte formation. The tibiotalar joint is intact. Facets of the subtalar joint align appropriately. No acute fracture or other bony lesion. IMPRESSION: 1. Ossifications relative to the Achilles musculotendinous junction likely heterotopic on the basis of prior injury. 2. Calcaneal degenerative changes. 3. No acute fracture or other bony lesion identified. Dictated on: 12/19/2023 8:37 AM This report has been electronically signed and approved by the interpreting Radiologist. Electronically Signed Jhon Sales M.D. 2023-12-19 08:38:41 Normal Not Available XR shoulder BI min 2Von 03-0 XR shoulder BI min 2V [facility] [place] [address] [place] [address] XRay Report Signed Patient: Paul Bermudez MR#: [id number] : 1960 Acct:[id number] Age/Sex: 62 / M ADM Date: 08/09/23 [place] [facility] [place]: Type: [facility] Attending Dr: Homar Doolye MD Copies to: Homar Dooley MD Ordering Provider: Homar Dooley MD Date of Service: 08/09/23 XR/XR shoulder BI min 2V: M19.011 - Primary osteoarthritis, right shoulder BILATERAL SHOULDERS - 3 views each CLINICAL HISTORY: Bilateral shoulder pain for months, greater on the right. No reported injury. COMPARISON: None AP, Y and Grashey views were obtained. There is no acute fracture or dislocation. There is mild hypertrophic degenerative change at the acromioclavicular joint on both sides. There is also hypertrophy at the inferior glenohumeral joints, right slightly worse than left. There is subchondral sclerosis and cystic change at the greater tuberosities. There are no significant soft tissue abnormalities. XR/XR shoulder BI min 2V IMPRESSION: BILATERAL DEGENERATIVE CHANGES Impression dictated by: Cassie Neal M.D.08/09/2023 1:27 PM Dictation Location: [place] [address] Transcribed By: [facility] 08/09/23 1327 Dictated By: Cassie Neal MD 08/09/23 1253 Signed By: 08/09/23 1327 Normal [facility] Thyrotropin [Units/volume] i n Serum or PlasmaOrdered By: Ruben Murillo on 04-14-2023 TSH Qn 4.47 m[IU]/L Normal 0.45-5.33 [facility] Comment on above: Order Comment: Reaso n for Exam Obesity, unspecified Result Comment: PERF ORMED BY: [place] [address] PATHOLOGIST LYMPHEDEMA THERAPIST ELIZABETH RAMIREZ M.D. Performed By: #### T SH3 #### [address] Automated basophil %Ordered By: Ruben Mast on 01-11-2023 Basophils/100 WBC (Bld) 1.0 % Normal . [facility] Comment on above: Order Comment: Reaso n for Exam Essential (primary) hypertension Performed By: #### T SH3, CBC #### [address] Automated basophil countOrde red By: Ruben Mast on 01-11-2023 Basophils (Bld) [#/Vol] 0.1 10*3/uL Normal 0.0-0.2 [facility] Comment on above: Order Comment: Reaso n for Exam Essential (primary) hypertension Result Comment: PERF ORMED BY: [place] [address] PATHOLOGIST LYMPHEDEMA THERAPIST ELIZABETH RAMIREZ M.D. Performed By: #### T SH3, CBC #### [address] Automated blood monocyte cou ntOrdered By: Ruben Mast on 01-11-2023 Monocytes (Bld) [#/Vol] 0.8 10*3/uL Normal 0.0-0.8 [facility] Comment on above: Order Comment: Reaso n for Exam Essential (primary) hypertension Performed By: #### T SH3, CBC #### [place] [address] [place] Automated eosinophil %Ordere d By: Ruben Mast on 01-11-2023 Eosinophils/100 WBC (Bld) 3.0 % Normal . [facility] Comment on above: Order Comment: Reaso n for Exam Essential (primary) hypertension Performed By: #### T SH3, CBC #### [place] [address] [place] Automated eosinophil countOr dered By: Ruben Mast on 01-11-2023 Eosinophils (Bld) [#/Vol] 0.3 10*3/uL Normal 0.0-0.45 [facility] Comment on above: Order Comment: Reaso n for Exam Essential (primary) hypertension Performed By: #### T SH3, CBC #### [facility] [address] Automated monocyte %Ordered By: Ruben Mast on 01-11-2023 Monocytes/100 WBC (Bld) 9.0 % Normal . [facility] Comment on above: Order Comment: Reaso n for Exam Essential (primary) hypertension Performed By: #### T SH3, CBC #### [address] Automated neutrophil %Ordere d By: Ruben Mast on 01-11-2023 Neutrophils/100 WBC (Bld) 54.3 % Normal . [facility] Comment on above: Order Comment: Reaso n for Exam Essential (primary) hypertension Performed By: #### T SH3, CBC #### [address] Complete Blood Count Auto Di ffon 01-11-2023 Mean Corpuscular HGB Conc 33.5 g/dL Normal 32.5-35.6 [facility] Comment on above: Order Comment: Reaso n for Exam Essential (primary) hypertension Performed By: #### T SH3, CBC #### [address] NRBC% 0.4 /100{WBC} Normal 0-0.5 [facility] Comment on above: Order Comment: Reaso n for Exam Essential (primary) hypertension Performed By: #### T SH3, CBC #### [facility] [address] [place] [address] [place] Erythrocyte distribution wid th [Ratio] by Automated countOrdered By: Ruben Mast on 01-11-2023 Erythrocyte distribution width (RBC) [Ratio] 14.4 % Normal 12.0-14.8 [facility] Comment on above: Order Comment: Reaso n for Exam Essential (primary) hypertension Performed By: #### T SH3, CBC #### [facility] [address] Erythrocytes [#/volume] in B lood by Automated countOrdered By: Ruben Murillo on 01-11-2023 RBC (Bld) [#/Vol] 5.27 10*6/uL Normal 3.90-5.60 [place] Comment on above: Order Comment: Reaso n for Exam Essential (primary) hypertension Performed By: #### T SH3, CBC #### [facility] [address] [place] [address] Hematocrit [Volume Fraction] of Blood by Automated countOrdered By: Ruben Murillo on 01-11-2023 Hematocrit (Bld) [Volume fraction] 45.0 % Normal 38.8-50.0 [facility] Comment on above: Order Comment: Reaso n for Exam Essential (primary) hypertension Performed By: #### T SH3, CBC #### [facility] [address] [place] [address] Hemoglobin [Mass/volume] in BloodOrdered By: Ruben Murillo on 01-11-2023 Hemoglobin (Bld) [Mass/Vol] 15.0 g/dL Normal 13.0-17.0 [facility] Comment on above: Order Comment: Reaso n for Exam Essential (primary) hypertension Performed By: #### T SH3, CBC #### [facility] [address] [place] [address] Leukocytes [#/volume] correc betzaida for nucleated erythrocytes in Blood by Automated counOrdered By: Ruben Murillo on 01-11-2023 WBC corrected for nucl RBC Auto (Bld) [#/Vol] 9.2 10*3/uL 4.1-10.5 [facility] Leukocytes [#/volume] in Blo od by Automated countOrdered By: Ruben Mast on 01-11-2023 WBC (Bld) [#/Vol] 9.2 10*3/uL Normal 4.1-10.5 [facility] Comment on above: Order Comment: Reaso n for Exam Essential (primary) hypertension Performed By: #### T SH3, CBC #### [facility] [address] [place] [address] [place] Lymphocytes [#/volume] in Bl ood by Automated countOrdered By: Ruben Mast on 01-11-2023 Lymphocytes (Bld) [#/Vol] 3.0 10*3/uL Normal 1.00-4.8 [facility] Comment on above: Order Comment: Reaso n for Exam Essential (primary) hypertension Performed By: #### T SH3, CBC #### [facility] [address] [place] [address] [place] Lymphocytes/100 leukocytes i n Blood by Automated countOrdered By: Ruben Mast on 01-11-2023 Lymphocytes/100 WBC (Bld) 32.7 % Normal . [facility] Comment on above: Order Comment: Reaso n for Exam Essential (primary) hypertension Performed By: #### T SH3, CBC #### [facility] [address] [place] [address] [place] MCH [Entitic mass] by Automa betzaida countOrdered By: Ruben Mast on 01-11-2023 MCH (RBC) [Entitic mass] 28.5 pg Normal 27.5-35.2 [facility] Comment on above: Order Comment: Reaso n for Exam Essential (primary) hypertension Performed By: #### T SH3, CBC #### [facility] [address] [place] [address] [place] MCHC Auto (RBC) [Mass/Vol]Or dered By: Ruben Mast on 01-11-2023 MCHC (RBC) [Mass/Vol] 33.5 g/dL 32.5-35.6 [facility] MCV [Entitic volume] by Auto mated countOrdered By: Ruben Mast on 01-11-2023 MCV (RBC) [Entitic vol] 85.3 fL Normal 83.5-101 [facility] Comment on above: Order Comment: Reaso n for Exam Essential (primary) hypertension Performed By: #### T SH3, CBC #### [facility] [address] [place] [address] [place] Neutrophils [#/volume] in Bl ood by Automated countOrdered By: Ruben Mast on 01-11-2023 Neutrophils (Bld) [#/Vol] 5.0 10*3/uL Normal 1.8-7.7 [facility] Comment on above: Order Comment: Reaso n for Exam Essential (primary) hypertension Performed By: #### T SH3, CBC #### [facility] [address] [place] [address] Nucleated erythrocytes [Pres ence] in Blood by Automated countOrdered By: Ruben Mast on 01-11-2023 Nucleated RBC Auto Ql (Bld) 0.4 /100{WBC} 0-0.5 [facility] Platelet mean volume [Entiti c volume] in Blood by Automated countOrdered By: Ruben Mast on 01-11-2023 Platelet mean volume (Bld) [Entitic vol] 8.4 fL Normal 6.6-10.1 [facility] Comment on above: Order Comment: Reaso n for Exam Essential (primary) hypertension Performed By: #### T SH3, CBC #### [facility] [address] [place] [address] [place] Platelets [#/volume] in Bloo d by Automated countOrdered By: Ruben Mast on 01-11-2023 Platelets (Bld) [#/Vol] 245 10*3/uL Normal 150-450 [facility] Comment on above: Order Comment: Reaso n for Exam Essential (primary) hypertension Performed By: #### T SH3, CBC #### [facility] [address] [place] [address] Thyrotropin [Units/volume] i n Serum or PlasmaOrdered By: Ruben Mast on 01-11-2023 TSH Qn 6.76 m[IU]/L High 0.45-5.33 [facility] Comment on above: Order Comment: Reaso n for Exam Obesity, unspecified FASTING. JKW Result Comment: PERF ORMED BY: [place] [address] PATHOLOGIST LYMPHEDEMA THERAPIST ELIZABETH RAMIREZ M.D. Performed By: #### T SH3, CBC #### [facility] [address] [place] [address] [place] Alanine aminotransferase [En zymatic activity/volume] in Serum or PlasmaOrdered By: Ruben Mast on 10-15-2022 ALT [Catalytic activity/Vol] 58 U/L 7-52 [facility] Albumin [Mass/volume] in Ser um or Plasma by Bromocresol green (BCG) dye binding methoOrdered By: Ruben Mast on 10-15-2022 Albumin BCG dye [Mass/Vol] 4.9 g/dL 3.5-5.7 [facility] Alkaline phosphatase [Enzyma tic activity/volume] in Serum or PlasmaOrdered By: Ruben Mast on 10-15-2022 ALP [Catalytic activity/Vol] 41 U/L 34-104 [facility] Aspartate aminotransferase [ Enzymatic activity/volume] in Serum or PlasmaOrdered By: Ruben Mast on 10-15-2022 AST [Catalytic activity/Vol] 35 U/L 13-39 [facility] Basophils Auto (Bld) [#/Vol] Ordered By: Ruben Mast on 10-15-2022 Basophils (Bld) [#/Vol] 0.1 10*3/uL 0.0-0.2 [facility] Basophils/100 WBC Auto (Bld) Ordered By: Ruben Mast on 10-15-2022 Basophils/100 WBC (Bld) 0.5 % . [facility] Bilirubin.total [Mass/volume ] in Serum or PlasmaOrdered By: Ruben Mast on 10-15-2022 Bilirubin [Mass/Vol] 0.7 mg/dL 0.3-1.0 [facility] Calcium [Mass/volume] in Ser um or PlasmaOrdered By: Ruben Mast on 10-15-2022 Calcium [Mass/Vol] 9.3 mg/dL 8.6-10.3 [facility] Carbon dioxide, total [Moles /volume] in Serum or PlasmaOrdered By: Ruben Mast on 10-15-2022 CO2 [Moles/Vol] 29.8 mmol/L 21.0-31.0 [facility] Chloride [Moles/volume] in S germain or PlasmaOrdered By: Ruben Mast on 10-15-2022 Chloride [Moles/Vol] 102 mmol/L 98-107 [facility] Cholesterol [Mass/volume] in Serum or PlasmaOrdered By: Ruben Mast on 10-15-2022 Cholesterol [Mass/Vol] 171 mg/dL 140-200 [facility] Comment on above: Chol less than 200 m g/dl low riskChol 201-239 mg/dl borderline riskChol 240 mg/dl and greater high risk Cholesterol in LDL Calc [Mas s/Vol]Ordered By: [facility] on 10-15-2022 Cholesterol in LDL [Mass/Vol] 92 mg/dL 0-100 [facility] Comment on above: LDL ATP III CLASSIFI CATIONLDL less than 100 mg/dL OptimalLDL 100-129 mg/dL Near or above optimalLDL 130-159 mg/dL Borderline highLDL 160-189 mg/dL HighLDL greater than 189 mg/dL Very high Cholesterol in VLDL Calc [Ma ss/Vol]Ordered By: [facility] on 10-15-2022 Cholesterol in VLDL [Mass/Vol] 12 mg/dL [facility] Creatinine [Mass/volume] in Serum or PlasmaOrdered By: [facility] on 10-15-2022 Creatinine [Mass/Vol] 1.07 mg/dL 0.70-1.30 [facility] Eosinophils Auto (Bld) [#/Vo l]Ordered By: [facility] on 10-15-2022 Eosinophils (Bld) [#/Vol] 0.0 10*3/uL 0.0-0.45 [facility] Eosinophils/100 WBC Auto (Bl d)Ordered By: [facility] on 10-15-2022 Eosinophils/100 WBC (Bld) 0.3 % . [facility] Erythrocyte distribution wid th Auto (RBC) [Ratio]Ordered By: [facility] on 10-15-2022 Erythrocyte distribution width (RBC) [Ratio] 13.4 % 12.0-14.8 [facility] Globulin Calc (S) [Mass/Vol] Ordered By: [facility] on 10-15-2022 Globulin (S) [Mass/Vol] 2.2 g/dL [facility] Glucose [Mass/volume] in Ser um or PlasmaOrdered By: [facility] on 10-15-2022 Glucose [Mass/Vol] 99 mg/dL 70-100 [facility] Comment on above: ADA recommended refe rence rangeRandom Glucose Reference Range is dependent on time and content of last meal. Glucose of more than 200 mg/dL in a nonstressed, ambulatory subject supports the diagnosis of Diabetes Mellitus. Glucose mean value [Mass/vol ume] in Blood Estimated from glycated hemoglobinOrdered By: [facility] on 10-15-2022 Average glucose Estimated from glycated hemoglobin (Bld) [Mass/Vol] 117 mg/dL [facility] Hematocrit Auto (Bld) [Volum e fraction]Ordered By: [facility] on 10-15-2022 Hematocrit (Bld) [Volume fraction] 49.6 % 38.8-50.0 [facility] Hemoglobin A1c percentageOrd ered By: [facility] on 10-15-2022 HbA1c (Bld) [Mass fraction] 5.7 % 4.3-5.6 [facility] Comment on above: Increased risk for d iabetes: 5.7 - 6.4diabetes: >6.4glycemic control for adults with diabetes: <7.0 Hemoglobin [Mass/volume] in BloodOrdered By: [facility] on 10-15-2022 Hemoglobin (Bld) [Mass/Vol] 16.4 g/dL 13.0-17.0 [facility] Leukocytes [#/volume] correc betzaida for nucleated erythrocytes in Blood by Automated counOrdered By: [facility] on 10-15-2022 WBC corrected for nucl RBC Auto (Bld) [#/Vol] 12.4 10*3/uL 4.1-10.5 [facility] Lymphocytes Auto (Bld) [#/Vo l]Ordered By: [facility] on 10-15-2022 Lymphocytes (Bld) [#/Vol] 3.3 10*3/uL 1.00-4.8 [facility] Lymphocytes/100 WBC Auto (Bl d)Ordered By: [facility] on 10-15-2022 Lymphocytes/100 WBC (Bld) 26.6 % . [facility] MCH Auto (RBC) [Entitic mass ]Ordered By: [facility] on 10-15-2022 MCH (RBC) [Entitic mass] 28.4 pg 27.5-35.2 [facility] MCHC Auto (RBC) [Mass/Vol]Or dered By: [facility] on 10-15-2022 MCHC (RBC) [Mass/Vol] 33.1 g/dL 32.5-35.6 [facility] MCV Auto (RBC) [Entitic vol] Ordered By: Ruben Mast on 10-15-2022 MCV (RBC) [Entitic vol] 86.0 fL 83.5-101 [facility] Monocytes Auto (Bld) [#/Vol] Ordered By: Ruben Mast on 10-15-2022 Monocytes (Bld) [#/Vol] 1.0 10*3/uL 0.0-0.8 [facility] Monocytes/100 WBC Auto (Bld) Ordered By: Ruben Mast on 10-15-2022 Monocytes/100 WBC (Bld) 7.7 % . [facility] Neutrophils Auto (Bld) [#/Vo l]Ordered By: Ruben Mast on 10-15-2022 Neutrophils (Bld) [#/Vol] 8.1 10*3/uL 1.8-7.7 [facility] Neutrophils/100 WBC Auto (Bl d)Ordered By: Ruben Mast on 10-15-2022 Neutrophils/100 WBC (Bld) 64.9 % . [facility] No Panel InformationOrdered By: Ruben Mast on 10-15-2022 Estimated GFR (CKD-EPI) > 60.0 mL/Min [facility] Creatinine Clearance (Chem N/A [facility] Nucleated erythrocytes [Pres ence] in Blood by Automated countOrdered By: Ruben Mast on 10-15-2022 Nucleated RBC Auto Ql (Bld) 0.2 /100{WBC} 0-0.5 [facility] Platelet mean volume Auto (B ld) [Entitic vol]Ordered By: Ruben Mast on 10-15-2022 Platelet mean volume (Bld) [Entitic vol] 8.9 fL 6.6-10.1 [facility] Platelets Auto (Bld) [#/Vol] Ordered By: Ruben Mast on 10-15-2022 Platelets (Bld) [#/Vol] 303 10*3/uL 150-450 [facility] Potassium [Moles/volume] in Serum or PlasmaOrdered By: Ruben Mast on 10-15-2022 Potassium [Moles/Vol] 4.5 mmol/L 3.5-5.1 [facility] Protein [Mass/volume] in Ser um or PlasmaOrdered By: Ruben Murillo on 10-15-2022 Protein [Mass/Vol] 7.1 g/dL 6.4-8.9 [facility] RBC Auto (Bld) [#/Vol]Ordere d By: Ruben Murillo on 10-15-2022 RBC (Bld) [#/Vol] 5.76 10*6/uL 3.90-5.60 [place] Serum or plasma albumin/glob ulin mass ratioOrdered By: Ruben Murillo on 10-15-2022 Albumin/Globulin [Mass ratio] 2.2 {ratio} [facility] Serum or plasma anion gap de terminationOrdered By: Ruben Murillo on 10-15-2022 Anion gap [Moles/Vol] 10.7 mmol/L 6.0-15.0 [facility] Serum or plasma high density lipoprotein (HDL) cholesterol measurementOrdered By: Ruben Murillo on 10-15-2022 Cholesterol in HDL [Mass/Vol] 66 mg/dL 29-71 [facility] Comment on above: HDL CHOL ATP-III CLA SSIFICATION Cardiovascular RiskHDL > or equal to 60 mg/dL LOWHDL < 40 mg/dL HIGH Serum or plasma total choles terol/high density lipoprotein (HDL) cholesterol mass ratOrdered By: Ruben Murillo on 10-15-2022 Cholesterol.total/Choles terol in HDL [Mass ratio] 2.6 {ratio} <5.0 [facility] Sodium [Moles/volume] in Ser um or PlasmaOrdered By: Ruben Murillo on 10-15-2022 Sodium [Moles/Vol] 138 mmol/L 136-145 [facility] Thyrotropin [Units/volume] i n Serum or PlasmaOrdered By: Ruben Murillo on 10-15-2022 TSH Qn 6.57 m[IU]/L 0.45-5.33 [facility] Thyroxine (T4) free [Mass/vo lume] in Serum or PlasmaOrdered By: Ruben Murillo on 10-15-2022 Free T4 [Mass/Vol] 0.68 ng/dL 0.61-1.12 [facility] Triglyceride [Mass/volume] i n Serum or PlasmaOrdered By: Ruben Murillo on 10-15-2022 Triglyceride [Mass/Vol] 64 mg/dL 0-149 [facility] Comment on above: TRIG ATP III CLASSIF ICATIONTRIG less than 150 mg/dL NormalTRIG 150-199 mg/dL Borderline highTRIG 200-500 mg/dL High TRIG greater than 500 mg/dL Very highStandard traceable to the Center for Disease Conrtrol and Prevention (CDC) test method. Urea nitrogen [Mass/volume] in Serum or PlasmaOrdered By: Ruben Murillo on 10-15-2022 Urea nitrogen [Mass/Vol] 26 mg/dL 7-25 [facility] WBC Auto (Bld) [#/Vol]Ordere d By: Ruben Murillo on 10-15-2022 WBC (Bld) [#/Vol] 12.4 10*3/uL 4.1-10.5 [place] Cholesterol [Mass/volume] in Serum or PlasmaOrdered By: Ruben Murillo on 05-07-2022 Cholesterol [Mass/Vol] 167 mg/dL 140-200 [facility] Comment on above: Chol less than 200 m g/dl low riskChol 201-239 mg/dl borderline riskChol 240 mg/dl and greater high risk Cholesterol in LDL Calc [Mas s/Vol]Ordered By: Ruben Murillo on 05-07-2022 Cholesterol in LDL [Mass/Vol] 97 mg/dL 0-100 [facility] Comment on above: LDL ATP III CLASSIFI CATIONLDL less than 100 mg/dL OptimalLDL 100-129 mg/dL Near or above optimalLDL 130-159 mg/dL Borderline highLDL 160-189 mg/dL HighLDL greater than 189 mg/dL Very high Cholesterol in VLDL Calc [Ma ss/Vol]Ordered By: Ruben Murillo on 05-07-2022 Cholesterol in VLDL [Mass/Vol] 11 mg/dL [facility] Serum or plasma high density lipoprotein (HDL) cholesterol measurementOrdered By: Ruben Murillo on 05-07-2022 Cholesterol in HDL [Mass/Vol] 58 mg/dL 29-71 [facility] Comment on above: HDL CHOL ATP-III CLA SSIFICATION Cardiovascular RiskHDL > or equal to 60 mg/dL LOWHDL < 40 mg/dL HIGH Serum or plasma total choles terol/high density lipoprotein (HDL) cholesterol mass ratOrdered By: Ruben Murillo on 05-07-2022 Cholesterol.total/Choles terol in HDL [Mass ratio] 2.9 {ratio} <5.0 [facility] Triglyceride [Mass/volume] i n Serum or PlasmaOrdered By: Ruben Murillo on 05-07-2022 Triglyceride [Mass/Vol] 58 mg/dL 35-149 [facility] Comment on above: TRIG ATP III CLASSIF ICATIONTRIG less than 150 mg/dL NormalTRIG 150-199 mg/dL Borderline highTRIG 200-500 mg/dL High TRIG greater than 500 mg/dL Very highStandard traceable to the Center for Disease Conrtrol and Prevention (CDC) test method. COVID-19 Positive/Negativeon 08-04-2020 COVID-19 Positive/Negative Negative Negative [facility] Comment on above: Testing for SARS-CoV -2 by RT-PCRThis test was developed and its performance characteristics determined by [employer] ([employer]) and validated at the [facility]. This test has not been FDA cleared or approved. This test has been authorized by FDA under an Emergency Use Authorization (EUA). This test has been validated in accordance with the FDA's Guidance Document (Policy for Diagnostics Testing in Laboratories Certified to Perform High Complexity Testing under CLIA prior to Emergency Use Authorization for Coronavirus Disease-2019 during the Public Health Emergency) issued on September 06, 2019. This test is only authorized for the duration of time the declaration that circumstances exist justifying the authorization of the emergency use of in vitro diagnostic tests for detection of SARS-CoV-2 virus and/or diagnosis of COVID-19 infection under section 564(b)(1) of the Act, 21 U.S.C. 360bbb-3(b)(1), unless the authorization is terminated or revoked sooner. SARS-CoV-2 (COVID-19) N gene FREYA+probe Ql (Resp) Negative Negative [facility] Comment on above: Testing for SARS-CoV -2 by RT-PCRThis test was developed and its performance characteristics determined by [employer] ([employer]) and validated at the [facility]. This test has not been FDA cleared or approved. This test has been authorized by FDA under an Emergency Use Authorization (EUA). This test has been validated in accordance with the FDA's Guidance Document (Policy for Diagnostics Testing in Laboratories Certified to Perform High Complexity Testing under CLIA prior to Emergency Use Authorization for Coronavirus Disease-2019 during the Public Health Emergency) issued on September 06, 2019. This test is only authorized for the duration of time the declaration that circumstances exist justifying the authorization of the emergency use of in vitro diagnostic tests for detection of SARS-CoV-2 virus and/or diagnosis of COVID-19 infection under section 564(b)(1) of the Act, 21 U.S.C. 360bbb-3(b)(1), unless the authorization is terminated or revoked sooner. Laboratory - Microbiology an d Antimicrobial susceptibilityon 08-04-2020 SARS-CoV-2 (COVID-19) RNA FREYA+probe Ql (Unsp spec) N/A [facility] Otheron 08-04-2020 Coronavirus 2019 PCR Interp N/A [facility] Automated basophil %on 07-22 Basophils/100 WBC (Bld) 1.1 % F [facility] Automated basophil counton 0 07-22-2020 Basophils (Bld) [#/Vol] 0.1 10*3/uL 0.0-0.[address] [facility] Automated blood lymphocyte c ount (number/volume)on 07-22-2020 Lymphocytes (Bld) [#/Vol] 2.3 10*3/uL 1.00-4.[address] [facility] Automated blood lymphocyte c ount as percentage of total leukocyteson 07-22-2020 Lymphocytes/100 WBC (Bld) 30.0 % [facility] Automated blood monocyte cou nton 07-22-2020 Monocytes (Bld) [#/Vol] 0.7 10*3/uL 0.0-0.[address] [facility] Automated blood platelet cou nt (count/volume)on 07-22-2020 Platelets (Bld) [#/Vol] 262 10*3/uL 150-[address] [facility] Automated blood platelet hebert n volume measurementon 07-22-2020 Platelet mean volume (Bld) [Entitic vol] 8.1 fL 6.6-10.[address] [facility] Automated eosinophil %on Eosinophils/100 WBC (Bld) 2.4 % [facility] Automated eosinophil counton 07-22-2020 Eosinophils (Bld) [#/Vol] 0.2 10*3/uL 0.0-0.[address] [facility] Automated erythrocyte distri bution width ratioon 07-22-2020 Erythrocyte distribution width (RBC) [Ratio] 15.2 % 12.0-14.[address] [facility] Automated erythrocyte mean c orpuscular hemoglobin (mass per erythrocyte)on 07-22-2020 MCH (RBC) [Entitic mass] 27.9 pg 27.5-35.[address] [facility] Automated erythrocyte mean c orpuscular hemoglobin concentration measurement (mass/volon 07-22-2020 MCHC (RBC) [Mass/Vol] 34.7 g/dL 32.5-35.6 [facility] Automated erythrocyte mean c orpuscular volumeon 07-22-2020 MCV (RBC) [Entitic vol] 80.6 fL 83.5-101 [facility] Automated monocyte %on 07-22 Monocytes/100 WBC (Bld) 9.6 % [facility] Automated neutrophil %on Neutrophils/100 WBC (Bld) 56.9 % [facility] Automated urine color determ inationon 07-22-2020 Color (U) Yellow Yellow [facility] Bilirubin Test strip Ql (U)o n 07-22-2020 Bilirubin Ql (U) Negative Negative [facility] Blood erythrocytes automated count (number/volume)on 07-22-2020 RBC (Bld) [#/Vol] 5.68 10*6/uL 3.90-5.60 [facility] Blood hemoglobin measurement (mass/volume)on 07-22-2020 Hemoglobin (Bld) [Mass/Vol] 15.9 g/dL 13.0-17.[address] [facility] Blood leukocytes automated c ount (number/volume)on 07-22-2020 WBC (Bld) [#/Vol] 7.6 10*3/uL 4.5-11.0 [facility] Blood neutrophil count by au tomated method (number/volume)on 07-22-2020 Neutrophils (Bld) [#/Vol] 4.3 10*3/uL 1.8-7.[address] [facility] Estimated glomerular filtrat ion rate (GFR) non- Americanon 07-22-2020 GFR/1.73 sq M predicted among non-blacks MDRD (S/P/Bld) [Vol rate/Area] mL/min/{1.73_m2} [facility] Hematocrit [Volume Fraction] of Blood by Automated counton 07-22-2020 Hematocrit (Bld) [Volume fraction] 45.8 % 38.8-50.[address] [facility] Ketones Auto test strip (U) [Mass/Vol]on 07-22-2020 Ketones (U) [Mass/Vol] Negative Negative [facility] Nitrite Test strip Ql (U)on 07-22-2020 Nitrite Ql (U) Negative Negative [facility] Otheron 07-22-2020 GFR/1.73 sq M.predicted MDRD (S/P/Bld) [Vol rate/Area] mL/min/{1.73_m2} [facility] Comment on above: GFR estimated refere nce range: According to KDOQI guidelines, <60 ml/min/1.73m2 is sufficient to diagnose a patient with chronic kidney disease. Nucleated RBC/100 WBC (Bld) [Ratio] 0.2 % 0-0.[address] [facility] Creatinine Clearance (Chem N/A [facility] Protein Auto test strip (U) [Mass/Vol]on 07-22-2020 Protein (U) [Mass/Vol] Negative Negative Fi [facility] Serum or plasma calcium billy urement (mass/volume)on 07-22-2020 Calcium [Mass/Vol] 9.7 mg/dL 8.2-10.2 [facility] Serum or plasma chloride hebert surement (moles/volume)on 07-22-2020 Chloride [Moles/Vol] 102 mmol/L 95-114 [facility] Serum or plasma creatinine m easurement with calculation of estimated glomerular filtron 07-22-2020 Creatinine [Mass/Vol] 0.94 mg/dL 0.64-1.27 [facility] Serum or plasma glucose billy urement (mass/volume)on 07-22-2020 Glucose [Mass/Vol] 94 mg/dL 70-100 [facility] Comment on above: ADA recommended refe rence rangeRandom Glucose Reference Range is dependent on time and content of last meal. Glucose of more than 200 mg/dL in a nonstressed, ambulatory subject supports the diagnosis of Diabetes Mellitus. Serum or plasma potassium me asurement (moles/volume)on 07-22-2020 Potassium [Moles/Vol] 4.9 mmol/L 3.5-5.1 [facility] Serum or plasma sodium measu rement (moles/volume)on 07-22-2020 Sodium [Moles/Vol] 138 mmol/L 136-146 [facility] Serum or plasma total carbon dioxide measurement (moles/volume)on 07-22-2020 CO2 [Moles/Vol] 25.5 mmol/L 22.0-30.0 [facility] Serum or plasma urea nitroge n measurement (mass/volume)on 07-22-2020 Urea nitrogen [Mass/Vol] 15 mg/dL 9-[address] [facility] Specific gravity of Urine by Automated test stripon 07-22-2020 Specific gravity (U) [Rel density] 1.007 1.001-1.[address] [facility] Urine clarity by refractomet ry automatedon 07-22-2020 Clarity Refractometry automated (U) Clear Clear [facility] Urine glucose measurement by automated test strip (mass/volume)on 07-22-2020 Glucose Auto test strip (U) [Mass/Vol] Normal mg/dL Normal [facility] Urine hemoglobin detection b y automated test stripon 07-22-2020 Hemoglobin Auto test strip Ql (U) Negative Negative [facility] Hemoglobin Auto test strip Ql (U) Negative Negative [facility] Urine ketones measurement by automated test strip (mass/volume)on 07-22-2020 Ketones (U) [Mass/Vol] Negative Negative [facility] Urine leukocyte esterase det ection by automated test stripon 07-22-2020 Leukocyte esterase Auto test strip Ql (U) Negative Negative [facility] Leukocyte esterase Auto test strip Ql (U) Negative Negative [facility] Urine nitrite detection by t est stripon 07-22-2020 Nitrite Ql (U) Negative Negative [facility] Urine pH measurement by auto mated test stripon 07-22-2020 pH (U) 7.5 [pH] 5.0-9.[address] [facility] Urine protein measurement by automated test strip (mass/volume)on 07-22-2020 Protein (U) [Mass/Vol] Negative Negative [facility] Urine total bilirubin detect ion by test stripon 07-22-2020 Bilirubin Ql (U) Negative Negative [facility] Urine urobilinogen measureme nt by automated test strip (mass/volume)on 07-22-2020 Urobilinogen (U) [Mass/Vol] Normal mg/dL Normal [facility] Automated basophil %on 03-12 Basophils/100 WBC (Bld) 0.3 % F [facility] Automated basophil counton 1 Basophils (Bld) [#/Vol] 0.0 10*3/uL 0.0-0.[address] [facility] Automated blood lymphocyte c ount (number/volume)on 03-12-2020 Lymphocytes (Bld) [#/Vol] 2.9 10*3/uL 1.00-4.[address] [facility] Automated blood lymphocyte c ount as percentage of total leukocyteson 03-12-2020 Lymphocytes/100 WBC (Bld) 20.0 % [facility] Automated blood monocyte cou nton 03-12-2020 Monocytes (Bld) [#/Vol] 1.3 10*3/uL 0.0-0.[address] [facility] Automated blood platelet cou nt (count/volume)on 03-12-2020 Platelets (Bld) [#/Vol] 300 10*3/uL 150-[address] [facility] Automated blood platelet hebert n volume measurementon 03-12-2020 Platelet mean volume (Bld) [Entitic vol] 8.2 fL 6.6-10.[address] [facility] Automated eosinophil %on Eosinophils/100 WBC (Bld) 0.7 % [facility] Automated eosinophil counton 03-12-2020 Eosinophils (Bld) [#/Vol] 0.1 10*3/uL 0.0-0.[address] [facility] Automated erythrocyte distri bution width ratioon 03-12-2020 Erythrocyte distribution width (RBC) [Ratio] 12.9 % 12.0-14.[address] [facility] Automated erythrocyte mean c orpuscular hemoglobin (mass per erythrocyte)on 03-12-2020 MCH (RBC) [Entitic mass] 28.4 pg 27.5-35.[address] [facility] Automated erythrocyte mean c orpuscular hemoglobin concentration measurement (mass/volon 03-12-2020 MCHC (RBC) [Mass/Vol] 33.0 g/dL 32.5-35.6 [facility] Automated erythrocyte mean c orpuscular volumeon 03-12-2020 MCV (RBC) [Entitic vol] 86.0 fL 83.5-101 F [facility] Automated monocyte %on 03-12 Monocytes/100 WBC (Bld) 9.2 % F [facility] Automated neutrophil %on Neutrophils/100 WBC (Bld) 69.8 % [facility] Blood erythrocytes automated count (number/volume)on 03-12-2020 RBC (Bld) [#/Vol] 4.59 10*6/uL 3.90-5.60 [facility] Blood hemoglobin measurement (mass/volume)on 03-12-2020 Hemoglobin (Bld) [Mass/Vol] 13.0 g/dL 13.0-17.[address] [facility] Blood leukocytes automated c ount (number/volume)on 03-12-2020 WBC (Bld) [#/Vol] 14.6 10*3/uL 4.5-11.0 [facility] Blood neutrophil count by au tomated method (number/volume)on 03-12-2020 Neutrophils (Bld) [#/Vol] 10.1 10*3/uL 1.8-7.[address] [facility] Hematocrit [Volume Fraction] of Blood by Automated counton 03-12-2020 Hematocrit (Bld) [Volume fraction] 39.5 % 38.8-50.[address] [facility] Otheron 03-12-2020 Nucleated RBC/100 WBC (Bld) [Ratio] 0.1 % 0-0.[address] [facility] Serum or plasma chloride hebert surement (moles/volume)on 03-12-2020 Chloride [Moles/Vol] 103 mmol/L 95-114 [facility] Serum or plasma potassium me asurement (moles/volume)on 03-12-2020 Potassium [Moles/Vol] 4.4 mmol/L 3.5-5.1 [facility] Serum or plasma sodium measu rement (moles/volume)on 03-12-2020 Sodium [Moles/Vol] 137 mmol/L 136-146 [facility] Serum or plasma total carbon dioxide measurement (moles/volume)on 03-12-2020 CO2 [Moles/Vol] 26.5 mmol/L 22.0-30.0 [facility] Estimated glomerular filtrat ion rate (GFR) non- Americanon 03-11-2020 GFR/1.73 sq M predicted among non-blacks MDRD (S/P/Bld) [Vol rate/Area] mL/min/{1.73_m2} [facility] Otheron 03-11-2020 GFR/1.73 sq M.predicted MDRD (S/P/Bld) [Vol rate/Area] mL/min/{1.73_m2} [facility] Comment on above: GFR estimated refere nce range: According to KDOQI guidelines, <60 ml/min/1.73m2 is sufficient to diagnose a patient with chronic kidney disease. Pharmacy Creatinine Clearance (Chem 110.[address] [facility] Serum or plasma calcium billy urement (mass/volume)on 03-11-2020 Calcium [Mass/Vol] 9.3 mg/dL 8.2-10.2 [facility] Serum or plasma creatinine m easurement with calculation of estimated glomerular filtron 03-11-2020 Creatinine [Mass/Vol] 0.96 mg/dL 0.64-1.27 [facility] Serum or plasma glucose billy urement (mass/volume)on 03-11-2020 Glucose [Mass/Vol] 97 mg/dL 70-100 [facility] Comment on above: ADA recommended refe rence rangeRandom Glucose Reference Range is dependent on time and content of last meal. Glucose of more than 200 mg/dL in a nonstressed, ambulatory subject supports the diagnosis of Diabetes Mellitus. Serum or plasma urea nitroge n measurement (mass/volume)on 03-11-2020 Urea nitrogen [Mass/Vol] 18 mg/dL 02-[address] [facility] Vital Signs Date Time Vital Sign Value Performing Clinician Facility 01-02-2024 07:48-0400 Body height 182.88 cm DO Ruben Mast Work Phone: [facility] 01-02-2024 07:48-0400 Body weight 112.6 kg DO Ruben Mast Work Phone: [facility] 01-02-2024 07:47-0400 Body temperature 98.2 [degF] DO Ruben Mast Work Phone: [facility] 01-02-2024 07:47-0400 Diastolic blood pressure 88 mm[Hg] DO Ruben Mast Work Phone: [facility] 01-02-2024 07:47-0400 Heart rate 71 /min DO Ruben Mast Work Phone: [facility] 01-02-2024 07:47-0400 Respiratory rate 18 /min DO Ruben Mast Work Phone: [facility] 01-02-2024 07:47-0400 SaO2% (BldA) [Mass fraction] 98 % DO Ruben Mast Work Phone: [facility] 01-02-2024 07:47-0400 Systolic blood pressure 160 mm[Hg] DO Ruben Mast Work Phone: [facility] 12-25-2023 09:11-0400 Body height 183.52 cm DO Ruben Mast Work Phone: [facility] 12-25-2023 09:11-0400 Body mass index (BMI) [Ratio] 33 kg/m2 DO Ruben Mast Work Phone: [facility] 12-25-2023 09:11-0400 Body temperature 98.1 [degF] DO Ruben Mast Work Phone: [facility] 12-25-2023 09:11-0400 Body weight 111.13 kg DO Ruben Mast Work Phone: [facility] 12-25-2023 09:11-0400 Diastolic blood pressure 77 mm[Hg] DO Ruben Mast Work Phone: [facility] 12-25-2023 09:11-0400 Heart rate 60 /min DO Ruben Mast Work Phone: [facility] 12-25-2023 09:11-0400 SaO2% (BldA) [Mass fraction] 95 % DO Ruben Mast Work Phone: [facility] 12-25-2023 09:11-0400 Systolic blood pressure 114 mm[Hg] DO Ruben Mast Work Phone: [facility] 10-03-2023 15:15-0400 Body height 183.52 cm DO Ruben Mast Work Phone: [facility] 10-03-2023 15:15-0400 Body mass index (BMI) [Ratio] 31.5 kg/m2 DO Ruben Mast Work Phone: [facility] 10-03-2023 15:15-0400 Body temperature 97.8 [degF] DO Ruben Mast Work Phone: [facility] 10-03-2023 15:15-0400 Body weight 106.28 kg DO Ruben Mast Work Phone: [facility] 10-03-2023 15:15-0400 Diastolic blood pressure 64 mm[Hg] DO Ruben Mast Work Phone: [facility] 10-03-2023 15:15-0400 Heart rate 68 /min DO Ruben Mast Work Phone: [facility] 10-03-2023 15:15-0400 SaO2% (BldA) [Mass fraction] 97 % DO Ruben Mast Work Phone: [facility] 10-03-2023 15:15-0400 Systolic blood pressure 118 mm[Hg] DO Ruben Mast Work Phone: [facility] 09-16-2023 09:33-0400 Body height 183.52 cm DO Ruben Mast Work Phone: [facility] 09-16-2023 09:33-0400 Body mass index (BMI) [Ratio] 30.9 kg/m2 DO Ruben Mast Work Phone: [facility] 09-16-2023 09:33-0400 Body weight 104.32 kg DO Ruben Mast Work Phone: [facility] 09-16-2023 09:33-0400 Diastolic blood pressure 74 mm[Hg] DO Ruben Mast Work Phone: [facility] 09-16-2023 09:33-0400 Heart rate 62 /min DO Ruben Mast Work Phone: [facility] 09-16-2023 09:33-0400 SaO2% (BldA) [Mass fraction] 97 % DO Ruben Mast Work Phone: [facility] 09-16-2023 09:33-0400 Systolic blood pressure 116 mm[Hg] DO Ruben Mast Work Phone: [facility] 06-27-2023 09:15-0500 Body height 183.52 cm Autumn Hidalgo Other [facility] 06-27-2023 09:15-0500 Body mass index (BMI) [Ratio] 30.57 kg/m2 Autumn Hidalgo Other [facility] Other 06-27-2023 09:15-0500 Body weight 102.97 kg Autumn Hidalgo Other [facility] Other 06-27-2023 09:15-0500 Body weight 102.96 kg DO Ruben Risktail Work Phone: [facility] 06-27-2023 09:15-0500 Diastolic blood pressure 69 mm[Hg] Autumn Hidalgo Other [facility] 06-27-2023 09:15-0500 SaO2% (BldA) [Mass fraction] 97 % Autumn Hidalgo Other [facility] Other 06-27-2023 09:15-0500 Systolic blood pressure 110 mm[Hg] Autumn Hidalgo Other [facility] 03-01-2023 08:45-0400 Body height 183.52 cm Homar Dooley Other [facility] Other 12-03-2022 11:00-0400 Body height 183.52 cm Eliana Mir Other [facility] Other 12-03-2022 11:00-0400 Body mass index (BMI) [Ratio] 33.16 kg/m2 Eliana Mir Other [facility] Other 12-03-2022 11:00-0400 Body temperature 97.3 [degF] Eliana Mir Other [facility] Other 12-03-2022 11:00-0400 Body weight 111.68 kg Eliana Mir Other [facility] Other 12-03-2022 11:00-0400 Diastolic blood pressure 80 mm[Hg] Eliana Mir Other [facility] Other 12-03-2022 11:00-0400 Respiratory rate 18 /min Eliana Steineranusha Other [facility] Other 12-03-2022 11:00-0400 SaO2% (BldA) [Mass fraction] 96 % Eliana Mir Other [facility] Other 12-03-2022 11:00-0400 Systolic blood pressure 122 mm[Hg] Eliana Mir Other [facility] Other 10-14-2022 15:15-0400 Body height 183.52 cm Ruben Mast Other [facility] Other 10-14-2022 15:15-0400 Body mass index (BMI) [Ratio] 33.49 kg/m2 Ruben Mast Other [facility] Other 10-14-2022 15:15-0400 Body temperature 98 [degF] Ruben Mast Other [facility] Other 10-14-2022 15:15-0400 Body weight 112.81 kg Ruben Mast Other [facility] Other 10-14-2022 15:15-0400 Diastolic blood pressure 80 mm[Hg] Ruben Mast Other [facility] Other 10-14-2022 15:15-0400 Respiratory rate 18 /min Ruben Mast Other [facility] Other 10-14-2022 15:15-0400 SaO2% (BldA) [Mass fraction] 96 % Ruben Mast Other [facility] Other 10-14-2022 15:15-0400 Systolic blood pressure 112 mm[Hg] Ruben Mast Other [facility] Other 06-15-2022 17:15-0500 Body height 183.52 cm Ruben Mast Other [facility] Other 06-15-2022 17:15-0500 Body mass index (BMI) [Ratio] 32.44 kg/m2 Ruben Mast Other [facility] Other 06-15-2022 17:15-0500 Body temperature 97.9 [degF] Ruben Mast Other [facility] Other 06-15-2022 17:15-0500 Body weight 109.27 kg Ruben Mast Other [facility] Other 06-15-2022 17:15-0500 Diastolic blood pressure 82 mm[Hg] Ruben Mast Other [facility] Other 06-15-2022 17:15-0500 Respiratory rate 18 /min Ruben Mast Other [facility] Other 06-15-2022 17:15-0500 SaO2% (BldA) [Mass fraction] 96 % Ruben Mast Other [facility] Other 06-15-2022 17:15-0500 Systolic blood pressure 120 mm[Hg] Ruben Mast Other [facility] Other 05-25-2022 17:00-0500 Body mass index (BMI) [Ratio] 33.26 kg/m2 Ruben Mast Other [facility] Other 05-25-2022 17:00-0500 Body temperature 98.2 [degF] Ruben Mast Other [facility] Other 05-25-2022 17:00-0500 Body weight 112.04 kg Ruben Mast Other [facility] Other 05-25-2022 17:00-0500 Diastolic blood pressure 82 mm[Hg] Ruben Mast Other [facility] Other 05-25-2022 17:00-0500 Respiratory rate 18 /min Ruben Mast Other [facility] Other 05-25-2022 17:00-0500 SaO2% (BldA) [Mass fraction] 96 % Ruben Mast Other [facility] Other 05-25-2022 17:00-0500 Systolic blood pressure 122 mm[Hg] Ruben Mast Other [facility] Other 05-25-2022 09:30-0500 Body height 183.52 cm Homar Olexa Other [facility] Other 05-25-2022 09:30-0500 Body mass index (BMI) [Ratio] 33.67 kg/m2 Homar Olexa Other [facility] Other 05-25-2022 09:30-0500 Body weight 113.4 kg Homar Olexa Other [facility] Other 12-08-2021 09:45-0400 Body height 183.52 cm Homar Olexa Other [facility] Other 12-08-2021 09:45-0400 Body mass index (BMI) [Ratio] 33.67 kg/m2 Homar Vazquezxa Other [facility] Other 12-08-2021 09:45-0400 Body weight 113.4 kg Homar Olexa Other [facility] Other 11-26-2021 17:15-0400 Body height 183.52 cm Ruben Mast Other [facility] Other 11-26-2021 17:15-0400 Body mass index (BMI) [Ratio] 33.67 kg/m2 Ruben Mast Other [facility] Other 11-26-2021 17:15-0400 Body weight 113.4 kg Ruben Mast Other [facility] Other 11-26-2021 17:15-0400 Diastolic blood pressure 80 mm[Hg] Ruben Mast Other [facility] Other 11-26-2021 17:15-0400 Respiratory rate 18 /min Ruben Mast Other [facility] Other 11-26-2021 17:15-0400 SaO2% (BldA) [Mass fraction] 99 % Ruben Mast Other [facility] Other 11-26-2021 17:15-0400 Systolic blood pressure 122 mm[Hg] Ruben Mast Other [facility] Other 10-17-2021 11:25-0400 Body height 183.52 cm Liban Maxwell Other [facility] Other 10-17-2021 11:25-0400 Body mass index (BMI) [Ratio] 31.65 kg/m2 Liban Maxwell Other [facility] Other 10-17-2021 11:25-0400 Body temperature 97.9 [degF] Liban Maxwell Other [facility] Other 10-17-2021 11:25-0400 Body weight 106.6 kg Liban Maxwell Other [facility] Other 10-17-2021 11:25-0400 Respiratory rate 18 /min Liban Maxwell Other [facility] Other 10-17-2021 11:25-0400 SaO2% (BldA) [Mass fraction] 97 % Liban Maxwell Other [facility] Other 08-24-2021 12:30-0400 Body height 183.52 cm Homar Vazquezazeem Other [facility] Other 08-24-2021 12:30-0400 Body mass index (BMI) [Ratio] 31.51 kg/m2 Homar Olexa Other [facility] Other 08-24-2021 12:30-0400 Body weight 106.14 kg Homar Olexa Other [facility] Other 08-05-2020 15:45-0500 BP Diastolic 90 mm[Hg] [facility] 08-05-2020 15:45-0500 BP Systolic 133 mm[Hg] [facility] 08-05-2020 15:45-0500 Pulse (Heart Rate) 89 /min [facility] 08-05-2020 15:45-0500 Pulse Oximetry 93 % [facility] 08-05-2020 14:45-0500 Diastolic blood pressure 90 mm[Hg] Ruben Mast Work Phone: [facility] 08-05-2020 14:45-0500 Heart rate 89 /min Ruben Mast Work Phone: [facility] 08-05-2020 14:45-0500 SaO2% (BldA) [Mass fraction] 93 % Ruben Mast Work Phone: [facility] 08-05-2020 14:45-0500 Systolic blood pressure 133 mm[Hg] Ruben Mast Work Phone: [phone] [place] [address] 08-05-2020 13:15-0500 Body Temperature 98.1 [degF] [facility] 08-05-2020 12:39-0500 Respiratory Rate 14 /min [facility] 08-05-2020 12:15-0500 Body temperature 98.1 [degF] Ruben Mast Work Phone: [phone] [place] [address] 08-05-2020 11:39-0500 Respiratory rate 14 /min Ruben Mast Work Phone: [facility] 08-05-2020 07:26-0500 BMI (Body Mass Index) 34.4 kg/m2 [facility] 08-05-2020 07:26-0500 Body weight 115 kg [facility] 08-05-2020 07:26-0500 Height 182.88 cm [facility] 08-05-2020 06:26-0500 Body height 182.88 cm Ruben Mast Work Phone: [phone] [place] [address] 08-05-2020 06:26-0500 Body mass index (BMI) [Ratio] 34.4 kg/m2 Ruben Mast Work Phone: [facility] 08-05-2020 06:26-0500 Body weight 115 kg Ruben Mast Work Phone: [phone] [place] [address] 06-12-2020 11:13-0500 Body Temperature 98 [degF] [facility] 06-12-2020 11:13-0500 BP Diastolic 107 mm[Hg] [facility] 06-12-2020 11:13-0500 BP Systolic 193 mm[Hg] Rub[facility] 06-12-2020 11:13-0500 Pulse (Heart Rate) 77 /min [facility] 06-12-2020 11:13-0500 Pulse Oximetry 96 % [facility] 06-12-2020 11:13-0500 Respiratory Rate 16 /min [facility] 03-12-2020 13:00-0400 Body Temperature 98.7 [degF] [facility] 03-12-2020 13:00-0400 BP Diastolic 77 mm[Hg] [facility] 03-12-2020 13:00-0400 BP Systolic 145 mm[Hg] [facility] 03-12-2020 13:00-0400 Pulse (Heart Rate) 71 /min [facility] 03-12-2020 13:00-0400 Pulse Oximetry 98 % [facility] 03-12-2020 13:00-0400 Respiratory Rate 16 /min [facility] 03-12-2020 11:50-0400 Height 187.96 cm [facility] 03-12-2020 07:18-0400 Body weight 110.8 kg [facility] 03-11-2020 13:19-0400 BMI (Body Mass Index) 29.9 kg/m2 [facility] Encounters Encounter Date Encounter Type Care Provider Facility Start: 01-05-2024 End: 01-05-2024 ambulatory DO Ruben Mast Work Phone: [facility] Work Phone: Start: 01-05-2024 End: 01-05-2024 Patient encounter procedure DO Ruben Mast Work Phone: [facility] Work Phone: Start: 01-02-2024 End: 01-02-2024 Emergency department patient visit DO Ruben Mast Work Phone: [facility] Work Phone: Start: 12-29-2023 End: 12-29-2023 ambulatory DO Ruben Mast Work Phone: [facility] Work Phone: Start: 12-29-2023 End: 12-29-2023 Patient encounter procedure DO Ruben Mast Work Phone: [facility] Work Phone: Start: 12-25-2023 End: 12-25-2023 ambulatory DO Ruben Mast Work Phone: [facility] Work Phone: Start: 12-25-2023 End: 12-25-2023 Patient encounter procedure DO Ruben Mast Work Phone: [facility] Work Phone: Start: 12-17-2023 End: 12-17-2023 Patient encounter procedure DO Ruben Mast Work Phone: [facility] [place] Work Phone: Start: 12-17-2023 End: 12-17-2023 ambulatory DO Ruben Mast Work Phone: [facility] Work Phone: Start: 12-17-2023 End: 12-17-2023 ambulatory CASSIE MARROQUIN Not Available Start: 10-03-2023 Patient encounter status DO Ruben Mast Work Phone: [facility] Start: 10-03-2023 End: 10-03-2023 ambulatory DO Ruben Mast Work Phone: [facility] Work Phone: Start: 10-03-2023 End: 10-03-2023 Encounter for general adult medical examination without abnormal findings DO Ruben Mast Work Phone: [facility] Start: 10-03-2023 End: 10-03-2023 Patient encounter procedure DO Ruben Mast Work Phone: [facility] [place] Work Phone: Start: 09-16-2023 End: 09-16-2023 ambulatory DO Ruben Mast Work Phone: [facility] Work Phone: Start: 09-16-2023 End: 09-16-2023 Patient encounter procedure DO Ruben Mast Work Phone: [facility] [place] Work Phone: Start: 08-09-2023 End: 08-09-2023 ambulatory Homar Olexa Facility:[facility] Start: 08-09-2023 End: 08-09-2023 Patient encounter procedure DO Ruben Mast Work Phone: [facility] Work Phone: Start: 08-02-2023 Non-patient / Non-visit DO Ruben Mast Work Phone[facility] Work Phone: Start: 06-27-2023 [facility] Start: 06-27-2023 End: 06-27-2023 Patient encounter procedure DO Ruben Mast Work Phone: [facility] Work Phone: Start: 06-27-2023 End: 06-27-2023 ambulatory DO Ruben Mast Work Phone: [facility] Work Phone: Start: 06-27-2023 End: 06-27-2023 Patient encounter procedure DO Ruben Mast Work Phone: [facility]- Start: 04-14-2023 End: 04-14-2023 Patient encounter procedure DO Ruben Mast Work Phone: [facility] Start: 04-14-2023 End: 04-14-2023 ambulatory DO Ruben Mast Work Phone: [facility] Work Phone: Start: 03-01-2023 End: 03-01-2023 ambulatory Homar Dooley Other [facility] Other Start: 03-01-2023 Office outpatient visit 15 minutes Homar Dooley [facility] Start: 01-19-2023 End: 01-19-2023 ambulatory Ruben Mast Other [facility] Other Start: 01-19-2023 Telephone encounter Ruben Mast [facility] Start: 01-11-2023 End: 01-11-2023 Patient encounter procedure DO Ruben Mast Work Phone: [facility] Start: 01-11-2023 End: 01-11-2023 ambulatory DO Ruben Mast Work Phone: [facility] Work Phone: Start: 01-10-2023 End: 01-10-2023 ambulatory Ruben Mast Other [facility] Other Start: 01-10-2023 Telephone encounter Ruben Mast [facility] Start: 01-03-2023 End: 01-03-2023 ambulatory Ruben Mast Other [facility] Other Start: 01-03-2023 Telephone encounter Ruben Mast [facility] Start: 12-13-2022 End: 12-13-2022 ambulatory Ruben Mast Other [facility] Other Start: 12-13-2022 Telephone encounter Ruben Mast [facility] Start: 12-08-2022 End: 12-08-2022 ambulatory Ruben Mast Other [facility] Other Start: 12-08-2022 Telephone encounter Ruben Mast [facility] Start: 12-03-2022 End: 12-03-2022 ambulatory Eliana Clarke Other [facility] Other Start: 12-03-2022 Office outpatient visit 25 minutes Eliana Mir [facility] Start: 10-15-2022 Telephone encounter Ruben Mast [facility] Start: 10-15-2022 End: 10-15-2022 ambulatory DO Ruben Mast Work Phone: [facility] Other Start: 10-15-2022 End: 10-15-2022 Patient encounter procedure DO Ruben Mast Work Phone: [facility] Start: 10-14-2022 End: 10-14-2022 ambulatory Ruben Mast Other [facility] Other Start: 10-14-2022 Encounter for genera l adult medical examination without abnormal findings Ruben Mast [facility] Start: 10-14-2022 Periodic preventive med est patient 40-64yrs Ruben Mast [facility] Start: 10-12-2022 Office outpatient visit 15 minutes Homar Dooley [facility] Start: 10-12-2022 End: 10-12-2022 ambulatory DO Ruben Mast Work Phone: [facility] Other Start: 10-12-2022 End: 10-12-2022 Patient encounter procedure DO Ruben Mast Work Phone: [facility] [place] [facility] Start: 06-15-2022 End: 06-15-2022 ambulatory Ruben Mast Other [facility] Other Start: 06-15-2022 Office outpatient visit 15 minutes Ruben Mast [facility] Start: 06-14-2022 End: 06-14-2022 ambulatory Ruben Mast Other [facility] Other Start: 06-14-2022 Telephone encounter Ruben Mast [facility] Start: 05-25-2022 End: 05-25-2022 ambulatory Homar Olexa Other [facility] Other Start: 05-25-2022 Office outpatient visit 15 minutes Homar Olexa [facility] Start: 05-07-2022 Telephone encounter Ruben Mast [facility] Start: 05-07-2022 End: 05-07-2022 ambulatory DO Ruben Mast Work Phone: [facility] Work Phone: Start: 05-07-2022 End: 05-07-2022 Patient encounter procedure DO Ruben Mast Work Phone: [facility] Start: 04-26-2022 End: 04-26-2022 ambulatory Ruben Mast Other [facility] Other Start: 04-26-2022 Telephone encounter Ruben Mast [facility] Start: 01-28-2022 End: 01-28-2022 ambulatory Ruben Mast Other [facility] Other Start: 01-28-2022 Telephone encounter Ruben Mast [facility] Start: 01-05-2022 End: 01-05-2022 ambulatory Ruben Mast Other [facility] Other Start: 01-05-2022 Telephone encounter Ruben Mast [facility] Start: 12-08-2021 End: 12-08-2021 ambulatory Homar Olexa Other [facility] Other Start: 12-08-2021 Office outpatient visit 15 minutes Homar Olexa [facility] Start: 11-26-2021 End: 11-26-2021 ambulatory Ruben Mast Other [facility] Other Start: 11-26-2021 Office outpatient visit 15 minutes Ruben Mast [facility] Start: 10-17-2021 End: 10-17-2021 ambulatory Liban Maxwell Other [facility] Other Start: 10-17-2021 Office outpatient visit 15 minutes Liban Maxwell [facility] Start: 08-24-2021 End: 08-24-2021 ambulatory Homar Olexa Other [facility] Other Start: 08-24-2021 Office outpatient visit 15 minutes Homar Olexa [facility] Start: 08-12-2021 End: 08-12-2021 ambulatory Apollo Rao Other [facility] Other Start: 08-12-2021 Telephone encounter Apollo [facility] Start: 10-30-2020 End: 10-30-2020 Patient encounter procedure Ruben Mast Work Phone: -[facility] Start: 10-09-2020 End: 10-09-2020 Discharged Recurring Ruben Mast Work Phone: -Physical Therapy [place] Start: 09-19-2020 End: 09-19-2020 Patient encounter procedure Ruben Mast Work Phone: [facility] Start: 09-18-2020 Registered Recurring Ruben Mast Work Phone: -[facility] [place] Start: 08-05-2020 End: 08-05-2020 Admission to day surgery Mario Jass [facility] Start: 08-04-2020 End: 08-04-2020 Patient encounter procedure Mario Regan -Pre-Surgical Testing Start: 07-23-2020 End: 07-23-2020 Patient encounter procedure [facility] Start: 07-22-2020 End: 07-22-2020 Patient encounter procedure Ruben Mast -Pre-Surgical Testing Start: 06-26-2020 End: 06-26-2020 Patient encounter procedure Ruben Mast -Sleep Lab Start: 06-12-2020 End: 06-12-2020 Emergency department patient visit Ruben Mast -Emergency Room Start: 06-04-2020 End: 06-04-2020 Patient encounter procedure Mario Regan -[facility] Start: 05-16-2020 End: 05-16-2020 Discharged Recurring Ruben Mast -[facility] [place] Start: 05-16-2020 Registered Recurring Mario Regan -[facility] [place] Start: 04-24-2020 End: 04-24-2020 Patient encounter procedure Mario Regan -[facility] Start: 04-24-2020 End: 04-24-2020 Patient encounter procedure Mario Regan -Sleep Lab Start: 03-11-2020 End: 03-12-2020 Evaluation and management of inpatient Mario Stephenson [facility] Start: 05-29-2018 End: 05-30-2018 Patient encounter procedure RUBEN MAST Facility:[facility] Start: 10-08-2017 End: 10-09-2017 Patient encounter procedure RUBEN MAST Facility:[facility] Start: 07-02-2017 End: 07-03-2017 Patient encounter procedure RUBEN MAST Facility:[facility] Procedures Date Procedure Procedure Detail Performing Clinician Start: 01-02-2024 MRI of left ankle DO Er ic Mast Work Phone: Start: 12-25-2023 COVID Antigen (POC) DO Ruben Mast Work Phone: Start: 12-25-2023 Quick Strep (POC) DO Er ic Mast Work Phone: Start: 12-17-2023 Duplex scan of lower limb veins DO Ruben Mast Work Phone: Start: 08-09-2023 Plain X-ray of bilat eral shoulders DO Ruben Mast Work Phone: Start: 10-12-2022 Plain X-ray of bilat eral hands DO Ruben Mast Work Phone: Start: 10-30-2020 Plain X-ray of left hip Ruben Mast Work Phone: Start: 09-19-2020 Plain x-ray of pelvi s and lower extremity Ruben Mast Work Phone: Start: 08-05-2020 OR Total Hip Arthro Anterior Approach (Left) Mario Regan Start: 08-05-2020 X-ray of left hip, s shannan view Mario Regan Start: 07-23-2020 XR hip LT 2V Mario Sebastian y Start: 06-04-2020 XR hip RT 2V Mario Sebastian y Start: 04-24-2020 Plain x-ray of pelvi s and lower extremity Mario Regan Start: 03-11-2020 X-ray of right hip, single view Mario Regan Start: 03-11-2020 Mario Sebastian y Plan of Treatment Date Care Activity Detail Author Start: 01-05-2024 Patient referral [facility] Work Phone: Start: 01-02-2024 MRI of left ankle MR ankle LT wo con [facility] Start: 12-17-2023 Duplex scan of lower limb veins US venous duplex LE LT [facility] Start: 12-17-2023 US Lower extremity v ein - left [facility] Patient Education [facility] Patient referral [facility] Immunizations Immunization Date Immunization Notes Care Provider Fa cilical 05-17-2022 influenza, seasonal, injectable Homar Dooley Other [facility] 05-06-2021 influenza, injectabl e, quadrivalent, preservative free Apollo Rao Other [facility] 09-18-2020 COVID-19 Vaccine Moderna - Documentation Purposes Only Apollo Rao Other [facility] 08-21-2020 COVID-19 Vaccine Moderna - Documentation Purposes Only Apollo Rao Other [facility] 02-28-2020 influenza, injectabl e, quadrivalent, contains preservative Apollo Rao Other [facility] Other 02-28-2020 influenza, injectabl e, quadrivalent, preservative free DO Ruben Mast Work Phone: [facility] 03-22-2019 influenza, injectabl e, quadrivalent, contains preservative Apollo Rao Other [facility] Other 03-22-2019 influenza, injectabl e, quadrivalent, preservative free DO Ruben Mast Work Phone: [facility] 06-30-2017 influenza, injectabl e, quadrivalent, contains preservative Apollo Rao Other [facility] Other 06-30-2017 influenza, injectabl e, quadrivalent, preservative free DO Ruben Mast Work Phone: [facility] Payers Date Payer Category Payer [facility] [id number] 2022 Self-pay [id number] 2014 Unknown [id number] 1960 Unknown [id number] 2.16.84 [id number]. 1960 Unknown [id number] .16.84 [id number] 1962 Unknown [id number] .16.84 [id number] 1962 Unknown [id number] 2.16.84 [id number] 1962 Unknown [id number] 2.16.84 [id number] Unknown [id number] Unknown MMO [id number] Unknown [id number] 2.16.8 [id number] Unknown [id number] 2.16.8 [id number] Unknown [id number] 2.16.8 [id number] Unknown [id number] 2.16.8 [id number] Unknown [id number] 2.16.8 [id number] Unknown [id number] 2.16.8 [id number] Social History Date Type Detail Facility Start: 03-11-2020 End: 01-02-2024 Tobacco smoking status [facility] Never smoked tobacco (finding) [facility] Start: 1960 Sex Assigned At Male F [facility] Sex Assigned At Sex Assigned At Bir th [facility] Other Medical Equipment Procedure Code Equipment Code Equipment Origin al Text Equipment Identifier Dates Arthroplasty, hip, total, anterior approach [id number] FDA Start: 03-11-2020 Arthroplasty, hip, total, anterior approach Acetabular shell ()[id number] FDA Start: 08-05-2020 Arthroplasty, hip, total, anterior approach Ceramic femoral head prosthesis ()[id number] FDA Start: 03-11-2020 Arthroplasty, hip, total, anterior approach Orthopaedic bone screw, non-bioabsorbable, sterile ()[id number] FDA Start: 03-11-2020 Arthroplasty, hip, total, anterior approach Acetabular shell ()[id number] FDA Start: 03-11-2020 Arthroplasty, hip, total, anterior approach Non-constrained polyethylene acetabular liner ()[id number] FDA Start: 03-11-2020 Arthroplasty, hip, total, anterior approach Non-constrained polyethylene acetabular liner ()[id number] FDA Start: 08-05-2020 Arthroplasty, hip, total, anterior approach Radio-frequency ablation system generator ()[id number] FDA Start: 08-05-2020 Arthroplasty, hip, total, anterior approach Coated hip femur prosthesis, modular ()[id number] FDA Start: 08-05-2020 Arthroplasty, hip, total, anterior approach Orthopaedic bone screw, non-bioabsorbable, sterile ()[id number] FDA Start: 08-05-2020 Goals Date Patient Goal Desired Activity /State Functional Status Date Assessment Result Facility 08-05-2020 Functional status Patient at Baseline [facility] 03-12-2020 Functional status Patient is Pro gressing Toward Baseline [facility] Mental Status Date Assessment Result Facility 08-05-2020 Cognitive function Cognitive Sta tus Patient at Baseline [facility] 03-12-2020 Cognitive function Cognitive Sta tus Patient at Baseline [facility] Clinical Notes 08-12-2021 to 06-27-2023 Note Date & Type Note Facility 06-27-2023 Evaluation note Encounter Date Diagnosis Assessment Notes Jun, Obstructive sleep apnea (ICD-10 - G47.33) Fortunately, the patient is using and benefiting from treatment. Download was reviewed with patient, Current pressure is controlling apnea well, And we will make no changes at this time. A prescription was sent to the [facility] for new supplies throughout the year. He was encouraged to continue to use his machine nightly, throughout the entire night and for naps as this does provide clinical benefit. He will follow-up in the sleep clinic in 1 year or sooner if problems. Jun, Insomnia, unspecified type (ICD-10 - G47.00) He continues to report good control of insomnia. Denies issues at this time. Jun, Essential (primary) hypertension (ICD-10 - I10) Positive effects of controlled LEA and hypertension were reviewed. Control of sleep apnea will frequently have a positive effect on blood pressure control, and may additionally reduce blood pressure lability. [facility] Other 09-26-2023 Evaluation note* Encounter Date Diagnosis Assessment Notes Treatment Notes Treatment Clinical Notes Feb, Pain in right hand (ICD-10 - M79.641) Feb, Pain in left hand (ICD-10 - M79.642) Feb, Primary osteoarthritis, right hand (ICD-10 - M19.041) Feb, Primary osteoarthritis, left hand (ICD-10 - M19.042) Feb, Arthritis of left glenohumeral joint (ICD-10 - M19.012) A 1/1cc marcaine / kenalog cortisone injection was performed into the subacromial space under sterile technique. Patient tolerated the injection well with no adverse reaction. Patient instructed on gentle motion and strength exercise. Feb, Arthritis of right glenohumeral joint (ICD-10 - M19.011) A 1/1cc marcaine / kenalog cortisone injection was performed into the subacromial space under sterile technique. Patient tolerated the injection well with no adverse reaction. Patient instructed on gentle motion and strength exercise. [facility] Other 06-30-2023 Evaluation note* Encounter Date Diagnosis Assessment Notes Treatment Notes Treatment Clinical Notes Nov, Acute non-recurrent maxillary sinusitis (ICD-10 - J01.00) Discussed diagnosis with patient. Instructed to take ATB as directed and complete entire course even if asymptomatic. OTC Tylenol or ibuprofen for discomfort. Saline nasal spray prn congestion. Flonase nasal spray prn congestion. Tessalon Perles cough medication prn cough. Push fluids and rest. Cool mist humidier. Immediate evaluation if worsening symptoms. Patient to notify office should symptoms persist or not improve. Pt verbalizes understanding and agrees with tx plan. [facility] Other 05-11-2023 Evaluation note* Encounter Date Diagnosis Assessment Notes Treatment Notes Treatment Clinical Notes October, Routine adult health maintenance (ICD-10 - Z00.00) His exam is unremarkable. We will check screening labs to see if there is underlying medical condition explaining his obesity and difficulty losing weight. Should this all being negative, then I advised a trial of Wegovy, I asked him to check insurance coverage and get back to me. In the meantime, stay on current meds, and return for Shingrix at his convenience. He is advised that Shingrix No. 2 is needed 2 to 6 months after Shingrix No. 1 October, Obesity, unspecified (ICD-10 - E66.9) October, Body mass index [BMI ] 33.0-33.9, adult (ICD-10 - Z68.33) October, Hyperlipidemia, unspecified hyperlipidemia type (ICD-10 - E78.5) October, Essential (primary) hypertension (ICD-10 - I10) [facility] Other 05-09-2023 Evaluation note* Encounter Date Diagnosis Assessment Notes Treatment Notes Treatment Clinical Notes October, Pain in right hand (ICD-10 - M79.641) October, Pain in left hand (ICD-10 - M79.642) October, Primary osteoarthritis, right hand (ICD-10 - M19.041) Xrays were reviewed with patient in detail. The patient is suffering from degenerative arthritis involving the hands. We discussed the conservative treatment options which can be beneficial in relieving pain including non-steroidal anti-inflammatory medication. We discussed the use of occasional cortisone injections that can provide pain relief as well. We discussed hand stretches could help keep the hand mobile. Patient instructed on use of occasional heat to area and motion exercise. Patient will try OTC anti inflammatory medication. He will come back for a cortisone injection if pain persists. October, Primary osteoarthritis, left hand (ICD-10 - M19.042) October, Arthritis of left glenohumeral joint (ICD-10 - M19.012) A 1/1cc marcaine / kenalog cortisone injection was performed into the subacromial space under sterile technique. Patient tolerated the injection well with no adverse reaction. Patient instructed on gentle motion exercise. October, Arthritis of right glenohumeral joint (ICD-10 - M19.011) A 1/1cc marcaine / kenalog cortisone injection was performed into the subacromial space under sterile technique. Patient tolerated the injection well with no adverse reaction. Patient instructed on gentle motion exercise. [facility] Other 01-10-2023 Evaluation note* Encounter Date Diagnosis Assessment Notes Treatment Notes Treatment Clinical Notes Jun, Acute upper respiratory infection (ICD-10 - J06.9) No sign of bacterial process on today's exam, clinically suspect viral upper respiratory infection. Supportive care, warning signs reviewed. Switch from Claritin to Mucinex. Consider empiric antibiotics if not improved in 3 to 5 days. Call if problems. [facility] Other 12-20-2022 Evaluation note* Encounter Date Diagnosis Assessment Notes Treatment Notes Treatment Clinical Notes May, Arthritis of right glenohumeral joint (ICD-10 - M19.011) Previous radiographs again reviewed with patient. This is pain secondary to glenohumeral arthritis. We discussed the importance of maintaining shoulder motion and demonstrated motion exercise in flexion, internal and external rotation. We discussed the use of non-steroidal anti-inflammatory medication. Discussed limiting strenuous use of the shoulder which will aggravate symptoms. Discussed that occasional intra-articular cortisone injection may be helpful. Discussed surgical treatment options including arthroscopy and arthroplasty replacement options. Instructed on proper body mechanics to avoid irritation at the shoulder. A marcaine / kenalog cortisone injection was performed into the bilateral subacromial space under sterile technique. Patient tolerated the injection well with no adverse reaction. May, Arthritis of left glenohumeral joint (ICD-10 - M19.012) May, Pain in right shoulder (ICD-10 - M25.511) May, Pain in left shoulder (ICD-10 - M25.512) [facility] Other 12-20-2022 Evaluation note* Encounter Date Diagnosis Assessment Notes Treatment Notes Treatment Clinical Notes May, Essential (primary) hypertension (ICD-10 - I10) May, Hyperlipidemia, unspecified hyperlipidemia type (ICD-10 - E78.5) May, Other Doing well. Continue current meds. Recheck in 6 months for annual wellness visit, sooner if problems. Keep working on weight loss [facility] Other 08-02-2022 Evaluation note* Encounter Date Diagnosis Assessment Notes Treatment Notes Treatment Clinical Notes Jan, Hyperlipidemia, unspecified hyperlipidemia type (ICD-10 - E78.5) [facility] Other 07-05-2022 Evaluation note* Encounter Date Diagnosis Assessment Notes Treatment Notes Treatment Clinical Notes Dec, Arthritis of right glenohumeral joint (ICD-10 - M19.011) This is pain secondary to glenohumeral arthritis. We discussed the importance of maintaining shoulder motion and demonstrated motion exercise in flexion, internal and external rotation. We discussed the use of non-steroidal anti-inflammatory medication. Discussed limiting strenuous use of the shoulder which will aggravate symptoms. Discussed that occasional intra-articular cortisone injection may be helpful. Discussed surgical treatment options including arthroscopy and arthroplasty replacement options. A marcaine / kenalog cortisone injection was performed into the bilateral subacromial space under sterile technique. Patient tolerated the injection well with no adverse reaction. Dec, Arthritis of left glenohumeral joint (ICD-10 - M19.012) Dec, Pain in right shoulder (ICD-10 - M25.511) Dec, Pain in left shoulder (ICD-10 - M25.512) [facility] Other 06-23-2022 Evaluation note* Encounter Date Diagnosis Assessment Notes Treatment Notes Treatment Clinical Notes Nov, Essential (primary) hypertension (ICD-10 - I10) BP controlled. Continue present meds. Work on weight loss, discussed diet, exercise strategies. Encouraged 150 minutes of exercise weekly. Check routine labs, further treatment pending results. Recheck in 6 months, sooner if problems. [facility] Other 05-14-2022 Evaluation note* Encounter Date Diagnosis Assessment Notes Treatment Notes Treatment Clinical Notes October, Acute non-recurrent sinusitis, unspecified location (ICD-10 - J01.90) Pt is to take abx as prescribed with food. Push fluids and rest. Pt denied work note today. Pt is to take otc antipyretic prn for fever and aches. Pt is to take otc cough suppressant prn for cough. Pt is to be re-evaluated after tx if sx worsen or don't improve by pcp or UC. Pt is to call the office with any questions or concerns regarding dx and tx. Pt understood and agreed to tx plan. [facility] Other 03-21-2022 Evaluation note* Encounter Date Diagnosis Assessment Notes Treatment Notes Treatment Clinical Notes Aug, Arthritis of right glenohumeral joint (ICD-10 - M19.011) Radiographs reviewed with patient. This is pain secondary to glenohumeral arthritis. We discussed the importance of maintaining shoulder motion and demonstrated motion exercise in flexion, internal and external rotation. We discussed the use of non-steroidal anti-inflammatory medication. Discussed limiting strenuous use of the shoulder which will aggravate symptoms. Discussed that occasional intra-articular cortisone injection may be helpful. Discussed surgical treatment options including arthroscopy and arthroplasty replacement options. A marcaine / kenalog cortisone injection was performed into the subacromial space under sterile technique. Patient tolerated the injection well with no adverse reaction. Aug, Arthritis of left glenohumeral joint (ICD-10 - M19.012) Aug, Pain in right shoulder (ICD-10 - M25.511) Aug, Pain in left shoulder (ICD-10 - M25.512) [facility] Other 03-09-2022 Evaluation note* Encounter Date Diagnosis Assessment Notes Treatment Notes Treatment Clinical Notes Aug, History of colon polyps (ICD-10 - Z86.010) [facility] Other Evaluation noteNo Assessments Information Available [facility] information available [facility] InformationNort Agent Partner Other Evaluation note* Diagnosis Onset Date Resolution Status Arthritis of left glenohumeral joint acute Arthritis of right glenohumeral joint acute Acute sinusitis acute [facility] Work Phone: Evaluation note* Diagnosis Onset Date Resolution Status Essential (primary) hypertension acute Routine adult health maintenance acute Unspecified hypothyroidism a [facility] [place] 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 acute Achilles tendon tear acute [facility] Work Phone: Hisuqsw general Narrative - Reported* Type Description Date Medical History Erectile dysfunction Medical History elevated blood pressure Medical History Hemorrhoids, external thrombosed Medical History LEA Surgical History Hernia Repair: 1999; bilateral inguinal Surgical History hand surgery Surgical History HERNIA Surgical History COLONOSCOPY 2017 Surgical History right total hip arthroplasty Surgical History Left hip 08/2020 Hospitalization History see above [facility] Other Hisqfqk general Narrative - Reported* Type Description Date Medical History Erectile dysfunction Medical History elevated blood pressure Medical History Hemorrhoids, external thrombosed Medical History LEA Surgical History Hernia Repair: 1999; bilateral inguinal Surgical History hand surgery Surgical History HERNIA Surgical History COLONOSCOPY 2017 Surgical History right total hip arthroplasty Surgical History Left hip 08/2020 Surgical History colonoscopy 2021 Hospitalization History see above [facility] Other Hospital Discharge instructions Additional Instructions You have an order to get an MRI at 1145 this morning please get that imaging will inform you about the results and you will need follow-up with orthopedics.[facility] Work Phone: Hospital Discharge instructionsAmbulatory Orders* Referral to Podiatry Time Frame: 01/05/24, Location: None Selected [facility] Work Phone: Summary Purpose Family History Relationship Condition Age at Onset Recorded Date/T luca father Sleep apnea Unknown Diabetes mellitus Unknown Not Specified Diverticulitis Unknown Relationship Condition Age at Onset Recorded Date/T luca father Sleep apnea Unknown Diabetes mellitus Unknown Not Specified Diverticulitis Unknown family member Unknown Malignant neoplasm Unknown Parkinson's disease Unknown family member Heart disease Unknown father Diabetes mellitus Unknown Unknown grandparent Unknown Family history of lung cancer Unknown Relationship Condition Age at Onset Recorded Date/T luca father Sleep apnea Unknown Diabetes mellitus Unknown mother Diverticulitis Unknown aunt Unknown Malignant neoplasm Unknown Parkinson's disease Unknown aunt Heart disease Unknown father Diabetes mellitus Unknown Unknown grandparent Unknown Family history of lung cancer Unknown Advance Directives Advance Directive Response Recorded Date/ Time Advance Directives No July 4:36pm Advance Directive Response Recorded Date/ Time Advance Directives No July 5:36pm Chief Complaint and Reason for Visit Chief Complaint Right Hip Pain follow up M16.11 Rt Total Hip Post-Op Z96.641 Reason for Visit S/P total hip arthro plasty Chief Complaint follow up M16.11 Rt Total Hip Post-Op Z96.641 Rt Hand Nail Injury- [employer] Chief Complaint follow up M16.11 Rt Total Hip Post-Op Z96.641 Rt Hand Nail Injury- [employer] Sleep apnea 31-90 day follow up Chief Complaint follow up M16.11 Rt Total Hip Post-Op Z96.641 Rt Hand Nail Injury- [employer] Sleep apnea 31-90 day follow up Hip pain Chief Complaint Rt Total Hip Post-Op Z96.641 Rt Hand Nail Injury- [facility] [employer] Sleep apnea 31-90 day follow up Hip pain Chief Complaint Rt Total Hip Post-Op Z96.641 Rt Hand Nail Injury- [facility] [employer] Sleep apnea 31-90 day follow up Hip pain M16.12 Hip pain Chief Complaint Rt Total Hip Post-Op Z96.641 Rt Hand Nail Injury- [facility] [employer] Sleep apnea 31-90 day follow up Hip pain M16.12 Hip pain Hip pain Chief Complaint Sleep apnea 31-90 da y follow up Hip pain M16.12 Hip pain Hip pain Left JORGE/post-op Chief Complaint Hip pain M16.12 Hip pain Hip pain Z96.642 Left JORGE/post-op Chief Complaint Hip pain Hip pain Z96.642 Left JORGE/post-op M16.12 Chief Complaint E87.5 Chief Complaint M79.641 M79.642 Chief Complaint M79.641 M79.642 E78.5;E66.9;I10 Chief Complaint I10 E66.9 Chief Complaint e66.9 Chief Complaint e66.9 Sleep apnea annual follow up Chief Complaint Annual Sleep apnea annual follow up Amb Documentation OP SP BILAT SHOULDER PAIN M19.011 m19.0112 sore throat, cough Reason for Visit Arthritis of left gl enohumeral joint Arthritis of right glenohumeral joint Acute sinusitis Chief Complaint Amb Documentation OP SP BILAT SHOULDER PAIN M19.011 m19.0112 sore throat, cough AWV Reason for Visit Arthritis of left gl enohumeral joint Arthritis of right glenohumeral joint Acute sinusitis Chief Complaint AWV Z13.6 I10 Z13.29 R22.42 Reason for Visit Essential (primary) hypertension Routine adult health maintenance Unspecified hypothyroidism Chief Complaint AWV Z13.6 I10 Z13.29 R22.42 Sore throat, cough, congestion Reason for Visit Essential (primary) hypertension Routine adult health maintenance Unspecified hypothyroidism Chief Complaint AWV Z13.6 I10 Z13.29 R22.42 Sore throat, cough, congestion OP SP EMIL HAND PAIN REQUESTING Reason for Visit Essential (primary) hypertension Routine adult health maintenance Unspecified hypothyroidism Acute streptococcal pharyngitis Chief Complaint Z13.6 I10 Z13.29 R22 .42 Sore throat, cough, congestion OP SP EMIL HAND PAIN REQUESTING lft foot pain Reason for Visit Acute streptococcal pharyngitis [id number] Osteoarthritis of metacarpophalangeal (MCP) joint of right index finger Chief Complaint Z13.6 I10 Z13.29 R22 .42 Sore throat, cough, congestion OP SP EMIL HAND PAIN REQUESTING lft foot pain ER [facility] LEFT ACHILLES TENDON RUPTURE CT MRI [facility] Reason for Visit Acute streptococcal pharyngitis [id number] Osteoarthritis of metacarpophalangeal (MCP) joint of right index finger Achilles tendon tear Assessments Diagnosis Onset Date Resolution Status S/P total hip arthroplasty a cute Additional Source Comments (unrecognized sect ion and content) No Status Records FoundNo Status Records Found INFORMATION SOURCE (unrecogn ized section and content) DATE CREATED AUTHOR 05/31/2018 [facility] DATE CREATED AUTHOR AUTHOR'S ORGANIZ ATION 12/22/2023 [facility] DATE CREATED AUTHOR AUTHOR'S ORGANIZ ATION 01/02/2024 [facility] Goals (unrecognized section and content) Goals may be documented in a n alternate sectionNo InformationNo InformationNo InformationNo InformationNo InformationNo InformationNo InformationNo InformationGoals may be documented in an alternate sectionNo InformationNo InformationNo InformationNo InformationNo InformationNo InformationGoals may be documented in an alternate sectionNo InformationNo InformationGoals may be documented in an alternate sectionNo InformationNo InformationNo InformationNo InformationNo InformationGoals may be documented in an alternate sectionNo InformationNo InformationGoals may be documented in an alternate sectionGoals may be documented in an alternate sectionNo InformationGoals may be documented in an alternate sectionGoals may be documented in an alternate sectionGoals may be documented in an alternate sectionGoals may be documented in an alternate sectionGoals may be documented in an alternate sectionGoals may be documented in an alternate sectionGoals may be documented in an alternate section REASON FOR VISIT (unrecogniz ed section and content) 6 month Follow upCOVID ORDER Bilateral Shoulder PainFULLY VACCINATED, COUGH, CONGESTION, SORE THROATBilateral Shoulder PainNo InformationMEDICATION REFILLrefilllabsRecheck Bilateral Shoulders6 month Follow upsinus infectionsinus infectionBilateral Shoulder Pain, Hand Pain1 year Follow uplabsSINUS INFECTIONCoughsinus infectionlabsMEDWegovy/ DeniedRecheck Bilateral ShouldersANNUAL Care Teams (unrecognized sec tion and content) Team Status: Active Member Role Status Dates Ruben Murillo DO Primary Care Provider Active Team Status: Inactive Member Role Status Dates Ruben Murillo DO Primary Care Provide r, Attending Provider Active Start: October 03, 2023 End: October 03, 2023 Team Status: Inactive Member Role Status Dates Ruben Mast , DO Primary Care Provider Active Star t: December 17, 2023 End: December 17, 2023 GOYO Ventura Attending Provider, Other Provider Active Start: December 17, 2023 End: December 17, 2023 Team Status: Active Member Role Status Dates Ruben Mast , DO Primary Care Provider Active Star t: August 02, 2023 Cassandra Richards RN Attending Provider Active Start: August 02, 2023 Team Status: Inactive Member Role Status Dates Ruben Mast , DO Primary Care Provider Active Star t: August 09, 2023 End: August 09, 2023 Homar Dooley MD Attending Provider Active Star t: August 09, 2023 End: August 09, 2023 Team Status: Inactive Member Role Status Dates Ruben Mast , DO Primary Care Provider Active Star t: September 16, 2023 End: September 16, 2023 Liban Allen PA-C Attending Provider Active St art: September 16, 2023 End: September 16, 2023 Team Status: Inactive Member Role Status Dates Ruben Mast , DO Primary Care Provider, Attending Provid er Active Team Status: Inactive Member Role Status Dates Ruben Mast , DO Primary Care Provider Active Homar Dooley MD Attending Provider Active Team Status: Inactive Member Role Status Dates Ruben Mast , DO Primary Care Provide r, Attending Provider Active Start: April 14, 2023 End: April 14, 2023 Team Status: Inactive Member Role Status Dates Ruben Mast , DO Primary Care Provider Active Star t: June 27, 2023 End: June 27, 2023 Autumn Hidalgo NP Attending Provider Active Start: June 27, 2023 End: June 27, 2023 Team Status: Inactive Member Role Status Dates Autumn Hidalgo NP Attending Provider Active Start: June 27, 2023 End: June 27, 2023 Team Status: Inactive Member Role Status Dates Ruben Mast , DO Primary Care Provider Active Star t: December 25, 2023 End: December 25, 2023 Makenna Lock APRN Attending Provider Active S tart: December 25, 2023 End: December 25, 2023 Team Status: Inactive Member Role Status Dates Ruben Mast , DO Primary Care Provider Active Star t: December 29, 2023 End: December 29, 2023 Homar Dooley MD Attending Provider Active Star t: December 29, 2023 End: December 29, 2023 Team Status: Inactive Member Role Status Dates Ruben Mast , DO Primary Care Provider Active Star t: January 02, 2024 End: January 02, 2024 Alon Castellanos , DO Emergency Provider Active St art: January 02, 2024 End: January 02, 2024 Guillermina Correia DO RES Active Start: January 02, 2024 End: January 02, 2024 Team Status: Inactive Member Role Status Dates Ruben Mast , DO Primary Care Provider Active Star t: January 05, 2024 End: January 05, 2024 Rommel Grossman , DO Attending Provider Active St art: January 05, 2024 End: January 05, 2024 FOR RECORDS PERTAINING TO PATIENTS WHO ARE OR HAVE BEEN ENROLLED IN A CHEMICAL DEPENDENCY/SUBSTANCEABUSE PROGRAM, SOME INFORMATION MAY BE OMITTED. This clinical summary was aggregated from multiple sources. Caution should be exercised in using it in the provision of clinical care. This summary normalizes information from multiple sources, and as a consequence, information in this document may materially change the coding, format and clinical context of patient data. In addition, data may be omitted in some cases. CLINICAL DECISIONS SHOULD BE BASED ON THE PRIMARY CLINICAL RECORDS. [facility]. provides no warranty or guarantee of the accuracy or completeness of information in this document.
[2024-01-13 06:33] LABS: Basophils Absolute Auto 0.1 10^3/uL (0.0-0.1); Basophils Percent Auto 0.8 % (0.2-2.0); Eosinophils Absolute Auto 0.2 10^3/uL (0.0-0.7); Eosinophils Percent Auto 2.3 % (0.9-7.0); Hematocrit 51.9 % (42.0-54.0); Hemoglobin 17.4 g/dL (14.0-18.0); Immature Granulocytes Abs Auto 0.02 10^3/uL (0.00-0.03); Immature Granulocytes Pct Auto 0.2 % (0.0-0.5); Lymphocytes Absolute Auto 3.1 10^3/uL (1.2-3.8); Lymphocytes Percent Auto 36.1 % (20.5-60.0); Mean Corpuscular HGB Conc 33.5 g/dL (29.9-35.2); Mean Corpuscular Hemoglobin 29.1 pg (25.9-34.0); Mean Corpuscular Volume 86.8 fL (80.0-94.0); Mean Platelet Volume 9.3 fL (9.5-13.5); Monocytes Absolute Auto 0.7 10^3/uL (0.3-0.8); Monocytes Percent Auto 8.2 % (1.7-12.0); Neutrophils Absolute Auto 4.5 10^3/uL (1.4-6.5); Neutrophils Percent Auto 52.4 % (43.0-75.0); Platelet Count 278 10^3/uL (150-450); Red Blood Count 5.98 10^6/uL (4.70-6.10); Red Cell Distribution Width 11.9 % (11.0-15.0); White Blood Count 8.7 10^3/uL (4.0-11.0)
[2024-01-13 06:46] LABS: Glucometer 94 mg/dL (74-106)
[2024-01-13] MEDS: LACTATED RINGER'S SOLUTION 1,000 ML 50 ML IV ×2 (06:57→08:34)
[2024-01-13] MEDS: CEFAZOLIN SODIUM/DEXTROSE,ISO 2 GM/50 ML PIGGYBACK IV (07:53)
--- NOTE | 2024-01-13 08:11 | P.ORON_ITS ---
Brief Operative Note Date of procedure: 01/13/24 Pre-op diagnosis general: Left Achilles tendon tear Post-op diagnosis: same as pre-op Procedure: Procedure performed: Open repair of left Achilles tendon tear, application of short leg splint Indications for procedure: Patient is a 63-year-old male who had a misstep getting out of the pool on 11/27/2023. Initially he thought he merely sprained his ankle but when pain and weakness did not improve he was seen and evaluated at [facility] and an MRI confirmed full-thickness Achilles tear with 6 cm of retraction. The MRI also showed intact flexor hallucis longus tendon with surrounding tenosynovitis. He was referred to me for surgical consultation and at that time he was in a cam boot. I reviewed the potential risks and benefits of surgical treatment specifically discussing the high risk of wound as well as potential infection, prolonged weakness and dysfunction as well as rerupture. I discussed that ideally this would have been fixed within 2 weeks of his injury but given the delay in seeking medical care this is not an ideal situation. I discussed nonsurgical treatment protocol as well. After lengthy conversation with patient and his patient wished to undergo the above procedure and I reviewed the postoperative course and answered all their questions. Intraoperative findings: Calcified/scarred area of the distal aspect of the proximal stump which required excision and measured approximately 3 cm. Once excised there was a 7 cm deficit. Proximal and distal stumps were easily reapproximated resulting in the foot plantar flexing approximately 15 degrees. Procedure in detail: Patient was identified in preoperative holding by myself which time correct side and site were marked and consent was obtained. Regional anesthesia was performed by the anesthesia team. Preoperative antibiotics were started and patient was brought back in the operating theater he was intubated then transferred to the OR table in a well-padded prone position with a thigh tourniquet. The left lower extremity was prepped and draped in usual sterile fashion. Formal timeout was performed and the left lower extremity was exsanguinated and the tourniquet was inflated. A linear incision was placed over central aspect of the proximal Achilles tendon and extended over the deficit and to the distal stump. Combination of sharp and blunt dissection while coagulating all bleeders gained access to the peritenon which was meticulously reflected. The sural nerve was identified and protected throughout the procedure. The stumps of the Achilles tendon were debrided noting substantial retraction of the proximal stump. Specifically there was an area of significant scar and calcified tendon which was excised and passed the back table to be sent as specimen. Then utilizing suture tape the proximal stump was sewn using a Krak?w technique. 2 stab incisions were placed on the posterior calcaneus 1 medial and 1 lateral. Blunt dissection was taken down to bone and a drill was used for a 4.5 mm knotless anchor. The medial and lateral limbs of the suture were then bluntly passed distally adjacent to the distal stump and through 2 stab incisions that were placed on the posterior calcaneus. Then while pulling the medial limb of the suture distal and holding the foot in plantarflexion the lateral limb of the suture was secured utilizing a 4.5 mm knotless anchor. The tendon stumps were now reapproximated without deficit. Then the medial limb of the suture was secured utilizing another 4.5 mm knotless anchor. The tendon stumps were reapproximated and reinforced with 3-0 Monocryl suture. The surgical site was irrigated multiple times throughout the procedure using normal saline and Irrisept. The peritenon and deep fascia were then closed with observable suture and the tourniquet was deflated noting a prompt hyperemic response. The primary incision as well as the 2 stab incisions on the calcaneus were closed with skin suture. Xeroform 4 x 4's and Kerlix were used as a dry sterile dressing then multiple layers of cast padding were placed from the forefoot to the popliteal fossa while maintaining the foot in a plantarflexed position. Additional layers of cast padding followed by a posterior plaster splint was applied and held in place by an additional layer of Axel wrap's. Patient tolerated the procedure anesthesia well and was transferred off the OR table onto his back and extubated. He was transported to the recovery room with vital signs stable and brisk capillary refill to the left toes. Postoperative plan: Discharge home under 's care Nonweightbearing left lower extremity Elevate on 2 pillows or above level of heart Prescriptions were sent to the pharmacy utilizing my office EMR Planned time nonweightbearing at least 3 weeks or until incision has healed Should call the office to schedule follow-up appointment next week to be placed into a fiberglass cast Implants: Medline 4.5 knotless anchors (x2) Anesthesia: regional and General-ET Surgeon: Bob Henriquez Estimated blood loss (mL): 10 Tourniquet time (min): 46 Pathology: other (Nonviable Achilles tendon) Condition: stable Disposition: PACU
--- NOTE | 2024-01-13 08:13 | PC.NURSE ---
0743- Final timeout completed. Patient placed on 2l/o2 via nc. Patient positioned on right side. Left hip draped in sterile technique per Thompson Le CRNA. Left popliteal block initiated. 0747- Popliteal block completed. Patient repositioned on back and left leg positioned in the frog position. Saphenous block initiated. 0750- Saphenous block completed. Patient tolerated it well. See posted vital signs.
[2024-01-13 10:12] LABS: Glucometer 110 mg/dL (74-106)
--- NOTE | 2024-01-13 10:20 | PC.NURSE ---
Left lower extremity elevated and ice placed behind knee
== END 2024-01-13 11:11 | disposition home or self-care (01) ==
PROVIDERS: Anesthesiology; PCP Family Medicine; Visit Provider Podiatrist Foot & Ankle Surgery
PROC: (CPT 1472; principal; 2024-01-13 07:30)
DX: S86.012A Strain of left Achilles tendon, initial encounter (principal); X50.9XXA Other and unspecified overexertion or strenuous movements or postures, initial encounter; G47.33 Obstructive sleep apnea (adult) (pediatric); E78.5 Hyperlipidemia, unspecified; I10 Essential (primary) hypertension; E03.9 Hypothyroidism, unspecified
CPT/HCPCS: 27650; 36415; 64445; 64450; 76942; 82948; 85025; C1713; J0690; J1100; J1885; J2250; J2405; J2704; J2795; J3010